=== PATIENT | male | born 1960 | race Caucasian/White ===

== ENCOUNTER 2020-10-05 11:32 | Inpatient (IN) | payer OTHER ==
[~2020-10-05] VITALS: Ht 175.3 cm; Wt 98.0 kg
[~2020-10-05 11:32] MED LIST: CEPHALEXIN500 MG OR; LORTAB5 PO; METOPROLOL SUCC50 MG OR; NEXIUM40 M1 PO; NEXIUM40 MG PO
--- NOTE | 2020-10-05 11:34 | NUR ---
TO ROOM VIA WHEELCHAIR.
--- NOTE | 2020-10-05 12:30 | NUR ---
RESTING ON STRETCHER. CALL NEWELL WITHIN REACH
[2020-10-05 12:38] LABS: HEMATOCRIT 43.3 % (39.0-50.0); HEMOGLOBIN 14.2 g/dl (14.0-18.0); IMMATURE GRANULOCYTES 0.9 % (0.0-5.0); MEAN CELL VOLUME 91.5 fL CALC (80.0-100.0); MEAN CORPUSCULAR HGB CONC 32.8 g/dL CAL (32.0-36.0); NEUT# 3.82 thou/uL (1.82-7.42); RED BLOOD COUNT 4.73 mill/uL (4.70-6.10); RED CELL DISTRI WIDTH 11.9 % (11.5-15.5)
[2020-10-05 12:49] LABS: ALBUMIN 3.9 g/dL (3.2-5.0); ALKALINE PHOSPHATASE 64 u/l (38-126); BILIRUBIN, TOTAL 0.9 mg/dL (0.0-1.4); BUN 11 mg/dL (9-20); BUN/CREATININE RATIO 12 (12-20 (CALC)); CARBON DIOXIDE 27 mmol/l (22-30); CHLORIDE 95 mmol/l (95-108); CREATININE 0.9 mg/dL (0.7-1.3); GFR > 60 ML/MIN (>=60 (CALC)); GFR FOR AFR.AMER. > 60 ML/MIN (>=60 (CALC)); POTASSIUM 4.6 mmol/l (3.5-5.1); TOTAL PROTEIN 7.3 g/dL (6.3-8.2)
[2020-10-05 13:01] LABS: MYOGLOBIN 86 ng/mL (0 - 121)
[2020-10-05 13:02] LABS: ANION GAP 15 (6-22 (CALC)); SGOT/AST 65 u/l (17-59); SODIUM 132 mmol/l (137-146)
--- NOTE | 2020-10-05 13:30 | NUR ---
RESTING ON STRETCHER. DENIES COMPLAINTS
--- NOTE | 2020-10-05 14:30 | NUR ---
RESTING ON STERTCHER. NO ACUTE DISTRESS.
--- NOTE | 2020-10-05 15:30 | NUR ---
TO XRAY WITH SR. STRATEGIC SOURCING MANAGER
--- NOTE | 2020-10-05 16:00 | NUR ---
RETURNED TO ROOM. PULSE OX CHECKED WITH EXERTION AND NO O2. DESAT TO 89% ON ROOM AIR.
[2020-10-05 16:30] LABS: URINE BLOOD DIPSTICK TRACE-INTACT (NEGATIVE); URINE COLOR YELLOW; URINE GLUCOSE - DIPSTICK 250 mg/dL (NEGATIVE); URINE KETONE >=80 mg/dL (NEGATIVE); URINE LEUK ESTERASE NEGATIVE (NEGATIVE); URINE PH 5.5 (4.5-8.0); URINE PROTEIN - DIPSTICK 100 mg/dL (NEG-TRACE); URINE SPECIFIC GRAVITY 1.025; URINE UROBILINOGEN - DIPSTICK 0.2 E.U./dL (0.2)
[2020-10-05 16:32] LABS: URINE BILIRUBIN - DIPSTICK SMALL (NEGATIVE); URINE NITRITE - DIPSTICK NEGATIVE (Negative)
[2020-10-05 16:36] LABS: URINE RBC 0-2 RBC/hpf (0-5); URINE SQUAMOUS EPITHELIAL CELL RARE EPI/hpf (0-FEW)
--- NOTE | 2020-10-05 17:00 | NUR ---
RESTING ON STRETCHER. AWAITING BED ASSIGNMENT
--- NOTE | 2020-10-05 18:20 | NUR ---
REPORT CALLED TO ERICK QUAN ON FLOOR. PT TO BE TRANSPORTED VIA STRETCHER ON TELE
[2020-10-05 18:34] VITALS: BP 179/87
--- NOTE | 2020-10-05 18:34 | NUR ---
TRANSPORTED TO FLOOR WITH RN ON TELE IN STABLE CONDITION
--- NOTE | 2020-10-05 18:34 | NUR ---
[facility] VIA WC ACCOMPANIED BY ER NURSECORETTA;VS WERE TAKEN;PT ORIENTED TO ROOM, BED,CALL LIGHT AND TV;ARM BANDS WERE PLACED ON PT;PT BELONGING INVENTORY WAS TAKEN;INJECTION MOLDING OPERATOR TO FINISH ADMISSION;
--- NOTE | 2020-10-05 19:01 | NUR ---
REPORT FROM AVELINA SUAREZ. ASSUMED PT CARE.
--- NOTE | 2020-10-05 20:39 | NUR ---
PT NOTED RESTING IN BED. ALERT AND ORIENTED X4. ADMISSION ASSESSMENT COMPLETE. EDUCATED PT ON PLAN OF CARE, SAFETY, AND PRONING. PT VERBALIZED UNDERSTANDING. NO APPARENT DISTRESS NOTED. RESPIRATIONS EVEN AND UNLABORED. O2 @ 2L/M VIA NC. IV SITE APPEARS HEALTHY, FLUSHED WELL, IVF INITIATED. THERAPEUTIC RECREATION LEADER IN PLACE. PT DENIES ANY PAIN OR DISCOMFORT. REQUEST SLEEPING PILL, WILL NOTIFY SENIOR SALES MANAGER PHYSICIAN. PT DENIES ANY CURRENT WANTS OR NEEDS. CALL LIGHT WITHIN REACH. WILL CONTINUE TO MONITOR.
[2020-10-05 20:49] VITALS: BP 163/81
--- NOTE | 2020-10-05 21:03 | NUR ---
SEWING TEACHER PHYSICIAN NOTIFIED ABOUT PT BP AND REQUEST FROM SLEEPING PILL.
--- NOTE | 2020-10-05 21:10 | NUR ---
PT CALLED, PASSCODE VERIFIED. UPDATE ON PT STATUS.
[2020-10-05 23:45] VITALS: BP 160/81
--- NOTE | 2020-10-06 01:10 | NUR ---
PT RESTING IN BED WITH EYES CLOSED. NO APPARENT DISTRESS NOTED. RESPIRATIONS EVEN AND UNLABORED. 02 @ 2L/M VIA NC. IVF INFUSING WITHOUT DIFFICULTY. CALL LIGHT WITHIN REACH. WILL CONTINUE TO MONITOR.
[2020-10-06 03:55] VITALS: BP 159/79
--- NOTE | 2020-10-06 04:55 | NUR ---
SR VICE PRESIDENT AT BEDSIDE TO COLLECT AM LABS.
[2020-10-06 05:07] LABS: HEMATOCRIT 37.4 % (39.0-50.0); HEMOGLOBIN 12.4 g/dl (14.0-18.0); MEAN CELL VOLUME 91.2 fL CALC (80.0-100.0); MEAN CORPUSCULAR HGB 30.2 pG CALC (26.0-32.0); MEAN CORPUSCULAR HGB CONC 33.2 g/dL CAL (32.0-36.0); NEUT# 3.54 thou/uL (1.82-7.42); RED BLOOD COUNT 4.1 mill/uL (4.70-6.10); RED CELL DISTRI WIDTH 11.8 % (11.5-15.5)
[2020-10-06 05:27] LABS: ALKALINE PHOSPHATASE 56 u/l (38-126); BILIRUBIN, TOTAL 0.6 mg/dL (0.0-1.4); BUN 16 mg/dL (9-20); BUN/CREATININE RATIO 17 (12-20 (CALC)); CHLORIDE 99 mmol/l (95-108); CREATININE 0.9 mg/dL (0.7-1.3); GFR > 60 ML/MIN (>=60 (CALC)); GFR FOR AFR.AMER. > 60 ML/MIN (>=60 (CALC)); POTASSIUM 4.2 mmol/l (3.5-5.1); SGOT/AST 49 u/l (17-59); SODIUM 131 mmol/l (137-146); TOTAL PROTEIN 5.9 g/dL (6.3-8.2)
[2020-10-06 05:41] LABS: ALBUMIN 3.1 g/dL (3.2-5.0); ANION GAP 17 (6-22 (CALC)); C-REACTIVE PROTEIN 19.7 mg/dL (0-0.9); CARBON DIOXIDE 19 mmol/l (22-30)
--- NOTE | 2020-10-06 08:57 | NUR ---
PATIENT IS SITTING IN THE RECLINER. PATIENT IS ALERT AND ORIENTED X3. PATIENT DENIES PAIN. PATIENT HAS A DRY COUGH. 02 AT 2L VIA NC. O2 READING 89% THEN WENT UP TO 93%. PATIENT STATED WHEN HE MOVES HE FEELS SOB. TELE IN PLACE. LUNGS SOUND DIMINISHED. PATIENT DENIES ANY OTHER NEEDS AT THIS TIME. CALL LIGHT IN REACH.
[2020-10-06 09:16] VITALS: BP 161/77
[2020-10-06 10:54] VITALS: BP 161/86
--- NOTE | 2020-10-06 11:51 | NUR ---
PATIENT IS RESTING IN BED. WHEN PATIENT MOVES OR TALKS HE STARTS TO HAVE A DRY COUGH. PATIIENT REQUESTING COUGH MEDICATION. MEDICATED PATIENT PATIENT WITH ROBITUSSIN. PATIENT DENIES ANY OTHER NEEDS AT THIS TIME. CALL LIGHT IN REACH.
[2020-10-06 14:09] VITALS: BP 152/86
--- NOTE | 2020-10-06 16:21 | NUR ---
PATIENT IS RESTING IN BED AND O2 AT 2L VIA NC. MEDICATED PATIENT WITH ROBITUSSIN PER PATIENT REQUEST FOR HIS COUGH. PATIENT DENIES ANY OTHER NEEDS AT THIS TIME. CALL LIGHT IN REACH.
[2020-10-06 19:00] VITALS: BP 146/80
--- NOTE | 2020-10-06 19:01 | NUR ---
REPORT FROM TAYLER SUAREZ. ASSUMED PT CARE.
--- NOTE | 2020-10-06 19:53 | NUR ---
PT NOTED RESTING IN BED. ALERT AND ORIENTED X4. EDUCATED PT ON PLAN OF CARE, SAFETY, AND PRONING. PT VERBALIZED UNDERSTANDING. NO APPARENT DISTRESS NOTED. RESPIRATIONS EVEN AND UNLABORED. O2 @ 2L/M VIA NC. IV SITE APPEARS HEALTHY, IVF @ KVO. AUTOMOTIVE PARTS SALESPERSON IN PLACE. PT DENIES ANY PAIN OR DISCOMFORT. PT DENIES ANY CURRENT WANTS OR NEEDS. CALL LIGHT WITHIN REACH. WILL CONTINUE TO MONITOR.
[2020-10-06 23:30] VITALS: BP 146/86
--- NOTE | 2020-10-06 23:45 | NUR ---
PT NOTED RESTING IN BED IN PRONE POSITION. CURRENT SAT ON 2L/M VIA NC 95%. NO APPARENT DISTRESS NOTED. IVF KVO. WELDER GUN IN PLACE. NO CURRENT WANTS OR NEEDS. CALL LIGHT WITHIN REACH. WILL CONTINUE TO MONITOR.
[2020-10-07] VITALS (10 sets, daily range): BP systolic 147–165; BP diastolic 74–91
--- NOTE | 2020-10-07 01:29 | NUR ---
NOAHN WILLYITUSSIN ADMINISTERED UPON REQUEST. NO APPARENT DISTRESS NOTED. CALL LIGHT WITHIN REACH. WILL CONTINUE TO MONITOR.
--- NOTE | 2020-10-07 03:04 | NUR ---
PT CALLED MEMBERSHIP COORDINATOR TO ROOM. PT FACE FLUSHED AND DYSPNEIC. HOB ELEVATED. PT HAVING HARD TIME TALKING DUE TO CONTINUOUS DRY NONPRODUCTIVE COUGH. O2 @ 2L/M VIA NC. CURRENT O2 SAT 82%. O2 INCREASED TO 4L/M SAT UP TO 86%, PRN INHALER ADMINISTERED, SAT UP TO 90%. PT STARTED COUGHING AGAIN AND SAT DROPPED BACK DOWN TO 81%- 82%. RT NOTIFIED. O2 INCREASED TO 12L/M VIA HIGHFLOW. NEWS WRITER PHYSICIAN NOTIFIED OF CHANGE IN PT STATUS. ORDERS TO TRANSFER PT TO ICU ON HIGHFLOW MAINTAIN SATS ABOVE 88%, STAT ABGS, VAPOTHERM IF NEEDED.
--- NOTE | 2020-10-07 03:32 | NUR ---
PHONE CALL TO MICK TO NOTIFY OF PT TRANSFER AND STATUS.
--- NOTE | 2020-10-07 03:50 | NUR ---
PATIENT TRANSFERED FROM [facility] FOR RESP DISTRESS. REPORT GIVEN BY STEFFANY. PATIENT ALERT AND ORIENTED. RESP LABORED AND SHALLOW, 15L HI-FLOW ON PATIENT AT ARRIVAL. FALL AND SAFTEY PRECAUTIONS IN PLACE. UPDATED BY MED-SURG NURSE. PATIENT ORIENTED TO ROOM, CALL LIGHT, AND BED. PLAN OF CARE DISCUSSED. PATIENT INFORMED TO CALL WITH ANY QUESTIONS OR CONCERNS.
--- NOTE | 2020-10-07 04:00 | NUR ---
PT TRANSFERED TO ICU. REPORT GIVEN TO WESLY SUAREZ.
--- NOTE | 2020-10-07 04:10 | NUR ---
PATIENT SWITCHED FROM 15L HI-FLOW TO VAPOTHERM 35L FIO2 75% DUE TO LOW SAT.
[2020-10-07 05:30] LABS: HEMATOCRIT 39.6 % (39.0-50.0); HEMOGLOBIN 13.1 g/dl (14.0-18.0); IMMATURE GRANULOCYTES 1.2 % (0.0-5.0); MEAN CELL VOLUME 90.4 fL CALC (80.0-100.0); MEAN CORPUSCULAR HGB 29.9 pG CALC (26.0-32.0); MEAN CORPUSCULAR HGB CONC 33.1 g/dL CAL (32.0-36.0); NEUT# 9.09 thou/uL (1.82-7.42); RED BLOOD COUNT 4.38 mill/uL (4.70-6.10); RED CELL DISTRI WIDTH 11.9 % (11.5-15.5)
[2020-10-07 06:00] LABS: ALBUMIN 3.2 g/dL (3.2-5.0); ALKALINE PHOSPHATASE 66 u/l (38-126); ANION GAP 10 (6-22 (CALC)); BILIRUBIN, TOTAL 0.7 mg/dL (0.0-1.4); BUN 18 mg/dL (9-20); BUN/CREATININE RATIO 21 (12-20 (CALC)); CHLORIDE 100 mmol/l (95-108); CREATININE 0.9 mg/dL (0.7-1.3); GFR > 60 ML/MIN (>=60 (CALC)); GFR FOR AFR.AMER. > 60 ML/MIN (>=60 (CALC)); POTASSIUM 4.2 mmol/l (3.5-5.1); SGOT/AST 65 u/l (17-59); SODIUM 132 mmol/l (137-146); TOTAL PROTEIN 6.2 g/dL (6.3-8.2)
[2020-10-07 06:18] LABS: CARBON DIOXIDE 26 mmol/l (22-30)
--- NOTE | 2020-10-07 07:02 | NUR ---
REPORT RECIEVED FROM NIGHT NURSE. PATIENT CURRENTLY SLEEPING.
--- NOTE | 2020-10-07 07:28 | NUR ---
PATIENT ASSESSED. PATIENT IS A/O, ABLE TO MAKE NEEDS KNOWN. STATES HE IS NOT HAVING ANY SOB, PAIN OR DISCOMFORT AT THIS TIME. HE STATED THAT THE COUGH MEDICINE WORKED FROM EARLIER AND HE IS FEELING BETTER. SAFETY MEASURES IN PLACE. CALL LIGHT IN REACH. WILL CONTINUE TO MONITOR.
--- NOTE | 2020-10-07 09:15 | NUR ---
PATIENT'S CALLED FOR AN UPDATE. SPOKE TO HER AND UPDATED HER ON HER 'S STATUS.
--- NOTE | 2020-10-07 10:00 | NUR ---
SPOKE TO PER DOCTOR JENNIE FUNES. ASKED HER FOR SOME SUGAR FREE COUGH DROPS FOR THE PATIENT. NEERAJ THE STATED THAT SHE WILL GO TO THE STORE AND BRING THEM TO THE ER LATER TODAY.
--- NOTE | 2020-10-07 10:38 | NUR ---
PATIENT'S SON IN LAW, DONY, CALLED, HE GAVE ME THE CODE. UPDATED HIM BRIEFLY. DONY STATED THAT HE WILL CALL BACK TOMORROW MORNING TO SPEAK TO CASE MANAGMENT ABOUT CODE STATUS OF THE PATIENT.
--- NOTE | 2020-10-07 11:10 | NUR ---
SPOKE TO THE PATIENT ABOUT HIS FAMILY CALLING AND THEIR CONCERNS. ASKED HIM IF HE KNEW WHAT IT MEANT TO BE A DNR OR FULL CODE. HE STATED "I KIND OF KNOW BUT NOT FULLY". EDUCATION WAS PROVIDED. PATIENT CLEARLY STATED "THAT IF I I DON'T NEED TO BRING ME BACK." TOLD HIM CASE MANAGMENT IS NOT HERE TODAY BUT I WILL MENTION IT TO THE UPCOMING NURSE OF YOUR REQUEST OF CHANGING YOUR CODE STATUS. HE STATED THAT HE UNDERSTANDS.
--- NOTE | 2020-10-07 12:00 | NUR ---
PATIENT IS SITTING UP EATING HIS LUNCH. GAVE HIM THE COUGH DROPS HIS KINDLY DROPPED OFF FOR HIM. HE STILL CONTINUES TO HAVE FREQUENT COUGHING. A FEW MINTUES PRIOR TO COMING IN THE ROOM PATIENT STATED THAT HE WAS COUGHING SO MUCH THAT HE FELT LIKE HE WAS "GOING TO PASS OUT". WILL CONTINUE TO MONITOR.
--- NOTE | 2020-10-07 14:00 | NUR ---
PATIENT IS SITTING UP IN BED WATCHING TV. COUGHING HAS DECREASED. WILL CONTINUE TO MONITOR.
--- NOTE | 2020-10-07 14:26 | NUR ---
PATIENT WAS OFFERED TO BE WASHED UP IN BED AND BED SHEETS CHANGED. PATIENT DECLINED STATED "AT THIS POINT IT'S NOT EVEN WORTH IT". OFFERED AGAIN AND HE SAID NO. INFORMED HIM THAT IF HE CHNAGED HIS MIND, LET ME KNOW. HE NODDED HIS HEAD.
--- NOTE | 2020-10-07 15:00 | NUR ---
SPOKE TO OVER THE PHONE, GAVE HER AN UPDATE ON HER .
--- NOTE | 2020-10-07 16:00 | NUR ---
LESS COUGHING NOTED. PATIENT STATED THAT HE WILL LIMIT WHAT HE SAIDS BECUASE TALKING SEEMS TO TRIGGER HIS COUGH MORE. PATIENT DOESN'T WANT HIS COUGH MEDS, STATED "THEY DON'T HELP NOTHING BESIDES MAKE ME COUGH MORE".
--- NOTE | 2020-10-07 18:39 | NUR ---
PATIENT REFUSED TO EAT HIS DINNER. STATED THAT "EATING FOOD MAKES HIM COUGH". GAVE HIM APPLESAUCE, TOLERATED WELL. PATIENT IS CURRENTLY LAYING ON HIS STOMATCH STATED THAT HE FEELS BETTER LIKE THAT, LESS COUGHING. SAFETY MEASURES IN PLACE. CALL LIGHT IN REACH. WILL CONTINUE TO MONITOR.
--- NOTE | 2020-10-07 20:03 | NUR ---
REPORT GIVEN BY GIDEON. PATIENT RESTING IN BED PRONE. RESP EVEN AND UNLABORED WITH VAPOTHERM IN PLACE. NO S/S OF DISTRESS NOTED. FALL AND SAFTEY PRECAUTION IN PLACE. IV INFUSING KVO FLUIDS. PLAN OF CARE DISCUSSED. PATIENT INFORMED TO CALL WITH ANY QUESTIONS OR CONCERNS. COUGH PRESENT, NON-PRODUCTIVE.
--- NOTE | 2020-10-07 20:30 | NUR ---
bedtime snack offered, declined due to the coughing the patient is experiencing
--- NOTE | 2020-10-07 20:30 | NUR ---
updated on patient condition
--- NOTE | 2020-10-07 22:07 | NUR ---
rt at bedside adjusting FIO2. ON VAPOTHERM
[2020-10-08] VITALS (18 sets, daily range): BP systolic 119–160; BP diastolic 78–92
--- NOTE | 2020-10-08 00:27 | NUR ---
PATIENT RESTING WITH EYES CLOSED. RESP EVEN AND UNLABORED. NO S/S OF DISTRESS NOTED. FALL AND SAFTEY PRECAUTIONS IN PLACE
--- NOTE | 2020-10-08 01:48 | NUR ---
RT CALLED DUE TO LOW O2 SAT. VAPOTHERM SETTINGS CHANGED TO 35L FIO2 75%. PATIENT EDUCATED ON DEEP BREATHING BY RT, PATIENT REFUSES DUE TO THE FACT IT MAKES HIM COUGH. PATIENT HAS HAD A COUGH MOST OF THE NIGHT. MEDICATIONS GIVEN PER MD ORDERS.
--- NOTE | 2020-10-08 04:06 | NUR ---
PATIENT WOKE UP COUGHING, MEDICATED PER MD ORDERS
--- NOTE | 2020-10-08 04:37 | NUR ---
O2 SAT STAYED IN THE LOW 81-84%, CALLED RT
--- NOTE | 2020-10-08 04:43 | NUR ---
VAPOTHERM SETTING CHANGED TO 35L FOI2 90%
[2020-10-08 05:29] LABS: HEMOGLOBIN 13.3 g/dl (14.0-18.0); IMMATURE GRANULOCYTES 1.5 % (0.0-5.0); MEAN CELL VOLUME 91.1 fL CALC (80.0-100.0); MEAN CORPUSCULAR HGB 30.3 pG CALC (26.0-32.0); MEAN CORPUSCULAR HGB CONC 33.3 g/dL CAL (32.0-36.0); NEUT# 8.02 thou/uL (1.82-7.42); RED BLOOD COUNT 4.39 mill/uL (4.70-6.10); RED CELL DISTRI WIDTH 12.1 % (11.5-15.5)
[2020-10-08 05:54] LABS: ALBUMIN 3.2 g/dL (3.2-5.0); ALKALINE PHOSPHATASE 64 u/l (38-126); ANION GAP 10 (6-22 (CALC)); BILIRUBIN, TOTAL 0.7 mg/dL (0.0-1.4); BUN 16 mg/dL (9-20); BUN/CREATININE RATIO 19 (12-20 (CALC)); C-REACTIVE PROTEIN 7.4 mg/dL (0-0.9); CARBON DIOXIDE 27 mmol/l (22-30); CHLORIDE 102 mmol/l (95-108); CREATININE 0.8 mg/dL (0.7-1.3); GFR > 60 ML/MIN (>=60 (CALC)); GFR FOR AFR.AMER. > 60 ML/MIN (>=60 (CALC)); POTASSIUM 4.1 mmol/l (3.5-5.1); SGOT/AST 52 u/l (17-59); SODIUM 134 mmol/l (137-146); TOTAL PROTEIN 6.1 g/dL (6.3-8.2)
--- NOTE | 2020-10-08 06:30 | NUR ---
UPDATED SON IN LAW DONY THIS MORNING
--- NOTE | 2020-10-08 06:45 | NUR ---
REPORT RECEIVED FROM PADILLA SUAREZ. CARE ASSUMED.
--- NOTE | 2020-10-08 07:30 | NUR ---
PT RESTING IN BED AWAKE. PT IS ALERT AND ORIENTED X3. SHIFT ASSESSMENT COMPLETED AT THIS TIME. IV PATENT X1. PT ASSISTED UP TO RECLINER AT BEDSIDE. PT SET UP FOR AM MEAL. DISCUSSED IMPORTANCE OF GETTING UP DAILY AND DEEP BREATHING. PT VERBALIZED UNDERSTANDING. CALL LIGHT IN REACH. WILL CONTINUE TO MONITOR.
--- NOTE | 2020-10-08 09:00 | NUR ---
DR JACKSON INTO SEE PATIENT AND DISCUSS PLAN OF CARE
--- NOTE | 2020-10-08 09:55 | NUR ---
PT SITTING UPIN RECLINER AT BEDSIDE. RESP ARE EVEN AND UNLABORED. NO DISTRESS NOTED. CALL LIGHT IN REACH. WILL CONTINUE TO MONITOR. -
--- NOTE | 2020-10-08 11:50 | NUR ---
VAPOTHERM TITRATED TO 30L 80%. O2 SATS >90%
--- NOTE | 2020-10-08 14:00 | NUR ---
PT SITTING UP IN RECLINER RESTING WITH EYES CLOSED. RESP ARE EVEN AND UNLABORED. NO DISTRESS NOTED. CALL LIGHT IN REACH. WILL CONTINUE TO MONTIOR.
--- NOTE | 2020-10-08 15:34 | NUR ---
PT O2 SATS 99% PT TITRATED TO 70% AND 25L. PT STATES " DON'T TITRATE IT TO MUCH I WILL SUFFOCATE" PROVIDED PATIENT WITH REASSURANCE THAT HIS O2 SATS ARE DOING GOOD. ASSISTED PT WITH SETTING UP A VIDEO CALL WITH SPOUSE. O2 SATS REMAINS >95%. CALL LIGHT IN REACH. WILL CONTINUE TO MONITOR.
--- NOTE | 2020-10-08 17:30 | NUR ---
PT SET UP FOR PM MEAL. PT STATES THAT HE IS NAUSEATED AT THIS TIME. OFFERED TO HOLD PM MEAL OR TRY TO ORDER SOME SOUP PT WANTS TO KEEP TRAY AND EAT. ASKED IF PT WANTED ZOFRAN PT STATES HE ASKED FOR SOME PREVIOUSLY. ORDER FAXED TO . PT NOTED TO HAVE A HEALTH CARE LEGAL ASSISTANT COUGH. EDUCATED ON COUGH ETIQUETTE. OFFERRED VENTOLIN INHALER. MULTIPLE COUGH DROPS AT BDSIDE FROM HOME. PT REFUSED ALL. O2 SATS REMAINS > 88%.
--- NOTE | 2020-10-08 18:20 | NUR ---
PT SEATED UP IN RECLINER. O2 SATS 95%. CALL LIGHT IN REACH. WILL CONTINUE TO MONITOR.
--- NOTE | 2020-10-08 20:30 | NUR ---
REPORT RECIVED FROM ERICK MOSQUERA. PT RESTING IN BED AT THIS TIME, NO COMPLAINTS VOICED. PT WAS NOTED TO HAVE HIGH LEVELS OF ANXIETY EARLIER IN SHIFT, CUSSING AT NURSE AND MESSING WITH NASAL CANNULA. DRY HACKING COUGH NOTED. O2 SATS WNL. B/P SLIGHTLY ELEVATED. PT IS SCHEDULED FOR NORVASC AT NINE PM. WILL MONITOR B/P THROUGHOUT THE SHIFT. PT DENIES PAIN, WILL GIVE XANAX WITH BEDTIME PILLS TO DECREASE ANXIETY LEVELS.
--- NOTE | 2020-10-08 22:00 | NUR ---
PT RESTING ON HIS BACK WITH THE HEAD OF HIS BED ELEVATED. PT WAS LYING PRONE EARLIER AND ROLLED HIMSELF BACK ONTO HIS BACK. INSTRUCTED PT THAT LYING PRONE MAKES IT EASIER TO BREATHE WHEN POSITIVE WITH COVID. PT INDICATED UNDERSTANDING TO INSTRUCTION GIVEN. PT WAS ADMINSTERED XANAX AND SLEEPING PILL PER PT REQUEST. WILL MONITOR
[2020-10-09] VITALS (14 sets, daily range): BP systolic 118–157; BP diastolic 67–90
--- NOTE | 2020-10-09 00:10 | NUR ---
PT RESTING COMFORTABLY IN BED WITH EYES CLOSED. BREATHING EVEN AND UNLABORED. NO COMPLAINTS VOICED AT THIS TIME. DENIES PAIN. WILL MONITOR
--- NOTE | 2020-10-09 02:08 | NUR ---
PT NOTED SITTING UP IN CHAIR WHEN ROUNDS COMPLETED. PT WAS HAVING A DRY HACKY COUGHING FIT AT TIME OF ASSESSMENT. ADMINSTERED ROBITUSSIN PRN. ASSISTED PT BACK TO A PRONING POSITION TO INCREASE OXYGENATION. PT TOLERATED REPOSITIONING WELL. SAFETY ROUNDS IN PLACE, BED IN LOWEST POSITION, CALL LIGHT WITHIN REACH. WILL MONITOR
--- NOTE | 2020-10-09 04:18 | NUR ---
LAB AT BEDSIDE DRAWING CHEM 7 THIS AM. PRIOR TO LAB ARRIVAL PT WAS RESTING QUIETLY AND HAD NOT EXPERIENCED AT COUGHING SINCE ADMINSTRATION OF ROBITUSSION. UPON LAB ARRIVAL, PT BEGAN COUGHING HARD AND HR WENT UP WITH SOME PVC'S. O2 SATURATION WITH COUGHING REMAINED WNL. PT WAS ABLE TO HAVE BLOOD DRAWN BY LAB. PT IS NOW BACK TO PRONING IN BED, VS HAVE RESTABILIZED. NO S/S OF DISTRESS AT THIS TIME. WILL CONTINUE TO MONITOR
--- NOTE | 2020-10-09 06:05 | NUR ---
PT LYING IN BED IN THE PRONE POSITION. PT KEEPS PULLING OUT SPO2 SENSOR WHEN HE ROLLS OVER IN BED, JUST RECONNECTED IT PRIOR TO 0600 VS READINGS. PT REQUESTED ROBITUSSION, ONCE NURSE WAS OFFERING TO PT HE REFUSED. WILL ADVISE NEXT SHIFT OF REFUSAL AFTER PULLED. PT COMES AND GOES INTO COUGHING FITS, NORMALLY WHEN WOKEN UP, WHEN SPEAKING, AND WHEN MOVING. WILL CONTIUE TO MONITOR FOR REMAINDER OF SHIFT. SAFETY PRECAUTIONS IN PLACE.
[2020-10-09 06:30] LABS: ALBUMIN 3.1 g/dL (3.2-5.0); ALKALINE PHOSPHATASE 69 u/l (38-126); ANION GAP 13 (6-22 (CALC)); BILIRUBIN, TOTAL 0.7 mg/dL (0.0-1.4); BUN 20 mg/dL (9-20); BUN/CREATININE RATIO 21 (12-20 (CALC)); CARBON DIOXIDE 26 mmol/l (22-30); CHLORIDE 102 mmol/l (95-108); CREATININE 0.9 mg/dL (0.7-1.3); GFR > 60 ML/MIN (>=60 (CALC)); GFR FOR AFR.AMER. > 60 ML/MIN (>=60 (CALC)); POTASSIUM 4.8 mmol/l (3.5-5.1); SGOT/AST 47 u/l (17-59); SODIUM 137 mmol/l (137-146)
--- NOTE | 2020-10-09 06:45 | NUR ---
REPORT RECEIVED FROM JOSTIN FAY. CARE ASSUMED.
--- NOTE | 2020-10-09 07:15 | NUR ---
PT RESTING IN BED AWAKE. PT IS ALERT AND ORIENTED X3. PT ASSISTED UP TO RECLINER. PT DID HAVE SOME SHORTNESS OF BREATH ON EXERTION O2 SATS TO 86%. PT ENCOURAGE TO TAKE SLOW DEEP BREATHS PT CONTINUES TO SHALLOW BREATH AND CONVERSE ON CELL PHONE. SHIFT ASSESSMENT COMPLETED AT THIS TIME. IV PATENT X1. CALL LIGHT IN REACH. WILL CONTINUE TO MONITOR.
--- NOTE | 2020-10-09 07:45 | NUR ---
PT SET UP FOR AM MEAL AT THIS TIME.
--- NOTE | 2020-10-09 08:30 | NUR ---
DR JACKSON AT BEDSIDE TO SEE PATIENT AND DISCUSS PLAN OF CARE
--- NOTE | 2020-10-09 09:00 | NUR ---
PT ASSISTED BACK TO BED TO REST. PT LAYING PRONE. PT TOLERATING WELL. CALL LIGHT IN REACH. WILL CONTINUE TO MONITOR.
--- NOTE | 2020-10-09 11:00 | NUR ---
PT COAT CHECKER LIGHT TO STATE THAT HE HAD A WE COUGH. CLEAR SPUTUM NOTED. PT SEATED UP ON SIDE OF BED. O2 SATS 94%. FIO2 DECREASED TO 65%. PT TOLERATED WELL. SPOUSE [place] CALLED FOR UPDATE. UPDATE PROVIDED. WILL CONTINUE TO MONITOR.
--- NOTE | 2020-10-09 11:29 | NUR ---
VAPOTHERM DECREASED TO FIO2 65% 22LITERS. PT TOLERATING WELL. PT REPORTS USING INCENTIVE SPIROMETER AT BEDSIDE.,
--- NOTE | 2020-10-09 11:50 | NUR ---
VAPOTHERM TITRATED TO FIO2 60% 20 LITERS
--- NOTE | 2020-10-09 13:05 | NUR ---
VAPOTHERM TITRATED TO 50% FIO2 AND 15 LITERS
--- NOTE | 2020-10-09 14:00 | NUR ---
PT ASSISTED UP TO RECLINER AT BEDSIDE. PT AMBULATED AROUND BED. O2 SATS DECREASED. INCREASED VAPOTHERM TO HELP PATIENT RECOVER.
--- NOTE | 2020-10-09 16:00 | NUR ---
PT SITTING UP IN RECLINER. PT WITH COMPLAINTS OF WEAKNESS AND FEELING NOT WELL. PT DECIDES TO CONINUE TO REST IN RECLINER. VSS ON MONITOR. CALL LIGHT IN REACH. WILL CONTINUE TO MONITOR.
--- NOTE | 2020-10-09 18:10 | NUR ---
PT SITTING UP IN RECLINER EATING EVENING MEAL. VSS ON MONITOR. CALL LIGHT IN REACH WILL CONTINUE TO MONITOR.
--- NOTE | 2020-10-09 20:00 | NUR ---
lying in prone position. denies resp diff. o2 cont 70% 22 liters per vapotherm. classroom monitor shows sinus rhythm hr 66. #20 rac saline lock. po fluids taken well. voids per urinal. fall & air/contact precautions cont.
--- NOTE | 2020-10-09 21:00 | NUR ---
sitting on side of bed coughing. instructed pt about cough etiquette as he is coughing in this writers face. pt verbalized understanding. sonata 5mg, xanax 0.5mg & robitussin ac 10cc given po per request for sleep, anxiety & cough. instructed pt again about prone position. pt verbalized understanding & complied.
--- NOTE | 2020-10-09 22:00 | NUR ---
lying quietly in prone position. no distress.
[2020-10-10] VITALS (11 sets, daily range): BP systolic 122–163; BP diastolic 66–83
--- NOTE | 2020-10-10 00:01 | NUR ---
resting quietly. no distress. desk monitor shows sinus rhythm hr 64
--- NOTE | 2020-10-10 02:00 | NUR ---
resting quietly. resps even & unlabored. no apparent distress. o2 cont.
--- NOTE | 2020-10-10 04:10 | NUR ---
lab here. blood drawn.
[2020-10-10 05:24] LABS: HEMOGLOBIN 13.7 g/dl (14.0-18.0); IMMATURE GRANULOCYTES 2.4 % (0.0-5.0); MEAN CELL VOLUME 92.5 fL CALC (80.0-100.0); MEAN CORPUSCULAR HGB 30.2 pG CALC (26.0-32.0); MEAN CORPUSCULAR HGB CONC 32.6 g/dL CAL (32.0-36.0); NEUT# 8.06 thou/uL (1.82-7.42); RED BLOOD COUNT 4.54 mill/uL (4.70-6.10); RED CELL DISTRI WIDTH 11.9 % (11.5-15.5)
[2020-10-10 05:54] LABS: ANION GAP 12 (6-22 (CALC)); BUN 19 mg/dL (9-20); BUN/CREATININE RATIO 23 (12-20 (CALC)); C-REACTIVE PROTEIN 4.2 mg/dL (0-0.9); CARBON DIOXIDE 29 mmol/l (22-30); CHLORIDE 100 mmol/l (95-108); CREATININE 0.8 mg/dL (0.7-1.3); GFR > 60 ML/MIN (>=60 (CALC)); GFR FOR AFR.AMER. > 60 ML/MIN (>=60 (CALC)); POTASSIUM 4.7 mmol/l (3.5-5.1); SODIUM 135 mmol/l (137-146)
--- NOTE | 2020-10-10 06:00 | NUR ---
no acute change in condition this shift. supervisor sterile processing shows sinus rhythm hr 71.
--- NOTE | 2020-10-10 08:00 | NUR ---
ASSESSMENT COMPLETE. AXOX3 O2 IN PLACE . NO RESP DISTRESS NOTED AT THIS TIME. NOTED CARDIAC NURSE PRACTITIONER COUGH . DENIES PAIN. REQUEST "SOME THING TO MAKE ME GO TO THE BATHROOM" PROVIDER NOTIFIED. REPOSITIONED FOR COMOFRT, SIDE RAILS UP CALL LIGHT IN REACH, ALL SAFTY MEASURES IN PLACE . WILL CONTINUE TO MONITOR.
--- NOTE | 2020-10-10 10:00 | NUR ---
OUT OF THE BED TO THE BEDSIDE CHAIR, PT STATES " I AM FEELING BETTER " [address] NO SOB NOTED . VS STABLE. HYGINE CARE GIVEN. CALL LIGHT N REACH. RESTING THE BEDSIDE CHAIR AT THIS TIME. DENIES PAIN.
--- NOTE | 2020-10-10 12:12 | NUR ---
PT SITTING UP ON THE SIDE OF THE BED EATING LUNCH. NO DISTRESS NOTED AT THIS TIME. WILL CONTINUE TO MONIOTR THE PATIENT.
--- NOTE | 2020-10-10 17:10 | NUR ---
PT BS 410 REPORTED TO THE PROVIDER. NO NEW ORDERS AT THIS TIME.
--- NOTE | 2020-10-10 17:19 | NUR ---
PT EDUCATED ON BS RESULTS. ENCOURAGED TO USE HIS ISSU. NO RESP DISTRESS NOTED. HE DENIES PAIN. WILL CONTINUE TO MONIOTR THE PATIENT.
--- NOTE | 2020-10-10 18:20 | NUR ---
PT GIVEN MED FOR CONSTIPATION TODAY. NO RESULTS AT THIS TIME, WILL PASS ON TO THE ON COMING SHIFT.
--- NOTE | 2020-10-10 20:03 | NUR ---
REPORT GIVEN BY NIVIA. PATIENT SITTING IN RECLINER AT THE BEDSIDE. RESP EVEN AND UNLABORED. NO S/S OF DISTRESS NOTED. FALL AND SAFTEY PRECAUTIONS IN PLACE. VAPOTHERM ON PATIENT. IV INFUSING FLUIDS. PLAN OF CARE DISCUSSED. PATIENT INFORMED TO CALL WITH ANY QUESTIONS OR CONCERNS.
--- NOTE | 2020-10-10 20:24 | NUR ---
PATIENT GIVEN BEDTIME SNACK. REQUESTING TYLENOL FOR GENERAL PAIN, XANAX FOR ANX,SLEEPING PILL GIVEN FOR SLEEP AND COUGH SYRUP BEFORE BEDTIME. PM MEDICATION GIVEN PER MD ORDERS.
--- NOTE | 2020-10-10 20:47 | NUR ---
NEW IV STARTED 20LFA, REMOVED 20RAC DUE TO BEING OUT DATED.
--- NOTE | 2020-10-10 22:00 | NUR ---
PATIENT RESTING PRONE. RESP EVEN AND UNLABORED. NO S/S OF DISTRESS NOTED. FALL AND SAFTEY PRECAUTIONS IN PLACE.
[2020-10-11] VITALS (12 sets, daily range): BP systolic 130–167; BP diastolic 71–88
--- NOTE | 2020-10-11 00:32 | NUR ---
PATIENT RESTING WITH EYES CLOSED IN THE PRONE POSITION. RESP EVEN AND UNLABORED, VPOTHERM IN PLACE 22L FOI2 70%. NO S/S OF DISTRESS NOTED.
--- NOTE | 2020-10-11 02:00 | NUR ---
PATIENT RESTING WITH EYES CLOSED. RESP EVEN AND UNLABORED. NO S/S OF DISTRESS NOTED
--- NOTE | 2020-10-11 04:15 | NUR ---
PATIENT RESTING WITH EYES CLOSED. RESP EVEN AND UNLABORED. NO S/S OF DISTRESS NOTED.
[2020-10-11 05:45] LABS: HEMATOCRIT 39.4 % (39.0-50.0); HEMOGLOBIN 13.3 g/dl (14.0-18.0); IMMATURE GRANULOCYTES 1.7 % (0.0-5.0); MEAN CELL VOLUME 90.4 fL CALC (80.0-100.0); MEAN CORPUSCULAR HGB 30.5 pG CALC (26.0-32.0); MEAN CORPUSCULAR HGB CONC 33.8 g/dL CAL (32.0-36.0); NEUT# 8.62 thou/uL (1.82-7.42); RED BLOOD COUNT 4.36 mill/uL (4.70-6.10); RED CELL DISTRI WIDTH 11.7 % (11.5-15.5)
[2020-10-11 05:55] LABS: ALBUMIN 2.9 g/dL (3.2-5.0); ALKALINE PHOSPHATASE 55 u/l (38-126); ANION GAP 9 (6-22 (CALC)); BILIRUBIN, TOTAL 0.8 mg/dL (0.0-1.4); BUN 17 mg/dL (9-20); BUN/CREATININE RATIO 23 (12-20 (CALC)); CARBON DIOXIDE 29 mmol/l (22-30); CHLORIDE 98 mmol/l (95-108); CREATININE 0.8 mg/dL (0.7-1.3); GFR > 60 ML/MIN (>=60 (CALC)); GFR FOR AFR.AMER. > 60 ML/MIN (>=60 (CALC)); POTASSIUM 4.5 mmol/l (3.5-5.1); SGOT/AST 32 u/l (17-59); SODIUM 132 mmol/l (137-146); TOTAL PROTEIN 5.7 g/dL (6.3-8.2)
--- NOTE | 2020-10-11 06:42 | NUR ---
MEDICAL DOCTOR MD/MEDICAL DIRECTOR DECREASED TEMP ON VAPOTHERM FROM 36C TO 3C. PT TO LWELL AT THIS TIME. NAD. VSS. MEDICAL DOCTOR MD/MEDICAL DIRECTOR TO MONITOR. PT STATES NO DISTRSS.
--- NOTE | 2020-10-11 08:00 | NUR ---
ASSESSMENT DONE. AXOX3, STATES HE IS FEELING THE SAME YESTERDAY. NOTED ANXIETY, MED PER ORDER. ENCOURAGED TO USE THE ISSU, RETURN DEMONSTRATION OF CORRECT USE. OFFERED TO PROVIDE HYGINE CARE AND NEW LININS, PT DECLINED. NO RESP DISTRESS OR SOB NOTED AT THIS TIME. REPOSITIONED FOR COMOFRT, SIDE RAILS UP CALL LIGHT IN REACH BED LOCKED IN LOW POSITION, ALL SAFTY MEASURES IN PLACE. WILL CONTINUE OT MONIOTR THE PATIENT.
--- NOTE | 2020-10-11 09:17 | NUR ---
titrated paramteres as per pt spo2. increased fio2 from .7 to .8 and decreased lpm from 22lpm to 20 lpm. kenisha well at this time. pt prone, asleep. wrecking crane engine operator to monitor.
--- NOTE | 2020-10-11 09:32 | NUR ---
PT RESTING COMOFRTABLE IN THE BED AT THIS TIME. NO ANXITY NOTED. WILL CONTINUE TO MONITOR.
--- NOTE | 2020-10-11 11:07 | NUR ---
pt in chair at this time. nad. vss. no weaning of vapotherm at this time. seafood fisherman to monitor. show card letterer in room c pt at this time as well.
--- NOTE | 2020-10-11 12:00 | NUR ---
OUT OF THE BED TO THE BEDSIDE CHAIR. [address] NO RESP DISTRESS NOTED. PARTIAL HYGINE CARE GIVEN. CALL LIGHT IN REACH. DENIES PAIN AT THIS TIME. WILL CONTINUE TO MONITOR THE PATIENT.
--- NOTE | 2020-10-11 13:47 | NUR ---
PT HAD A LARGE BROWN STOOL.
--- NOTE | 2020-10-11 15:10 | NUR ---
titrated vapotherm settings as per pt spo2. pt in chair at bedside. no acute distress noted at this time. pt states he feels better after "having a poop". pt kenisha vapotherm titration well at this point. ice seller to monitor.
--- NOTE | 2020-10-11 16:56 | NUR ---
PT STATES "I WENT MOVED MY BOWELS AGAIN, I FEEL SO MUCH BETTER" . PT RESTING IN THE BEDSIDE CHAIR CALL LIGHT IN REACH. NO DISTRESS NOTED AT THIS TIME. wILL CONTINUE TO MONIOTR THE PATIENT.
--- NOTE | 2020-10-11 17:59 | NUR ---
PT STILL UP IN THE BEDSIDE CHAIR. CALL LIGHT IN REACH, NO DISTRESS NOTED.
--- NOTE | 2020-10-11 19:59 | NUR ---
PATIENT REQUESTING TYLENOL, XANAX, COUGH SYRUP, AND SONATA TONIGHT. HE IS CURRENTLY REQUESTING PM MEDICATIONS AT THIS TIME. BEDTIME SNACK OFFERED. FALL AND SAFTEY PRECAUTION IN PLACE
--- NOTE | 2020-10-11 20:00 | NUR ---
REPORT GIVEN BY NIVIA. PATIENT SITTING UP AT THE BEDSIDE. RESP EVEN AND UNLABORED, VAPOTHERM 27L 70% FIO2. NO S/S OF DISTRESS NOTED. FALL AND SAFTEY PRECAUTIONS IN PLACE. PLAN OF CARE DISCUSSED. PATIENT INFROMED TO CALL WITH ANY QUESTIONS OR CONCERNS.
--- NOTE | 2020-10-11 21:42 | NUR ---
PATIENT RESTING WITH EYES CLOSED. RESP EVEN AND UNLABORED. NO S/S OF DSITRESS NOTED
[2020-10-12] VITALS (12 sets, daily range): BP systolic 98–150; BP diastolic 62–84
--- NOTE | 2020-10-12 00:20 | NUR ---
PATIENT RESTING WITH EYES CLOSED. RESP EVEN AND UNLABORED. NO S/S OF DISTRESS NOTED
--- NOTE | 2020-10-12 02:11 | NUR ---
PATIENT RESTING IN BED. RESP EVEN AND UNLABORED. NO S/S OF DISTRESS NOTED. FALL AND SATEY PRECAUTIONS IN PLACE.
[2020-10-12 05:05] LABS: HEMATOCRIT 39.3 % (39.0-50.0); HEMOGLOBIN 13.4 g/dl (14.0-18.0); IMMATURE GRANULOCYTES 2.5 % (0.0-5.0); MEAN CELL VOLUME 89.9 fL CALC (80.0-100.0); MEAN CORPUSCULAR HGB 30.7 pG CALC (26.0-32.0); MEAN CORPUSCULAR HGB CONC 34.1 g/dL CAL (32.0-36.0); NEUT# 7.84 thou/uL (1.82-7.42); RED BLOOD COUNT 4.37 mill/uL (4.70-6.10); RED CELL DISTRI WIDTH 11.7 % (11.5-15.5)
[2020-10-12 05:11] LABS: ANION GAP 9 (6-22 (CALC)); BUN 17 mg/dL (9-20); BUN/CREATININE RATIO 22 (12-20 (CALC)); C-REACTIVE PROTEIN 5.7 mg/dL (0-0.9); CARBON DIOXIDE 31 mmol/l (22-30); CHLORIDE 96 mmol/l (95-108); CREATININE 0.8 mg/dL (0.7-1.3); GFR > 60 ML/MIN (>=60 (CALC)); GFR FOR AFR.AMER. > 60 ML/MIN (>=60 (CALC)); POTASSIUM 4.3 mmol/l (3.5-5.1); SODIUM 132 mmol/l (137-146)
--- NOTE | 2020-10-12 06:36 | NUR ---
PT RESTING COMFORTABLY AT THIS TIME. NOACUTE DISTRESS NOTED. VITALS WNL. PT MAINTAINED SPO2 =90 ON CURRENT VAPOTHERM PARAMETERS. CUSHION SEWER TO MONITOR.
--- NOTE | 2020-10-12 07:15 | NUR ---
pt awake sitting on the side of the bed; no apparent distress noted; pt offers no complaints; assessment completed at this time; pt alert and oriented; interm confusion noted; pt denies pain/ discomfort; no n/v noted per mortgage or loan underwriter; resp even and unlabored; lungs clear/ diminished bases; skin color wnl; o2 per nc at 5: moist loose cough noted; pt noted with self suctioning setup at bedside; hr irreg; wk pedal pulses; 2+ edema noted to ble; afib 110s on monitor; abd soft/ distended with bs present; no bm noted per mortgage or loan underwriter; pt assisted to standing position per this mortgage or loan underwriter to urinate; pt urinated on floor/ missed urinal; pericare/ gown changed per mortgage or loan underwriter; no accidently dislodged IV approx [id number] this am per geothermal powerplant mechanic helper; edema noted to rfa; arm cleansed of old blood; mortgage or loan underwriter unable to establish iv access at this time; plan of care/ am meds explained; pt requires much assistance/ guidance; call light within reach; will continue to monitor
--- NOTE | 2020-10-12 08:00 | NUR ---
REPORT RECEIVED BEDSIDE HANDOFF. PATIENT IN BEDSIDE CHAIR STILL SHORT OF BREATH WITH ACTIVITY. PATIENT ENCOURAGED TO ASK QUESTIONS. SAFETY PERCAUTIONS IN PLACE. PATIENT ON VAPOTHERM 27L 70%. WILL CONTINUE TO MONITOR.
--- NOTE | 2020-10-12 10:00 | NUR ---
PATIENT IS SITTING IN CHAIR WITH NO NEW CONCERNS. PATIENT ATE 50% OF HIS BREAKFAST. ROUNDED WITH DR JACKSON IN PATIENTS ROOM. PATIENT STILL ON VAPOTHERM 27L 70%. WILL CONTINUE TO MONITOR.
--- NOTE | 2020-10-12 11:10 | NUR ---
PT C NAD. VSS. NO CHANGES IN [facility] PARAMETERS AT THIS TIME. MARINE EQUIPMENT ENGINEER TO MONITOR.
--- NOTE | 2020-10-12 12:00 | NUR ---
PATIENT IS SITTING IN ROOM CHAIR. BLOOD GLUCOSE HIGH 293 INSULINE PROVIDED BEFORE LUNCH TRY. PATIENT ATE 50% OF MEAL. PATIENT STATED THAT HIS PAIN LEVEL IS 0 AT THE MOMENT. FALL PERCAUTIONS IN PLACE. WILL CONTINUE TO MONITOR.
--- NOTE | 2020-10-12 14:00 | NUR ---
PATIENT IS IN BED SLEEPING PRONE POSITION VAPOTHERM IN PLACE. IV ABX STARTED AND REMDESIVIR RIGHT AFTER. FALL PERCAUTIONS IN PLACE. WILL CONTINUE TO MONITOR.
--- NOTE | 2020-10-12 14:57 | NUR ---
PT IN NAD. VSS. USING BEDSIDE URINAL. DEFECT CUTTER TO MONITOR. NO CHANGES TO VAPOTHERM PARAMETERS AT THIS TIME.
--- NOTE | 2020-10-12 16:00 | NUR ---
PATIENT WATCHING TV IN CHAIR WITH NO NEW CONCERNS. WATER REFILLED AND IV ABX GIVEN. FALL PERCAUTIONS IN PLACE. PATIENT EDUCATED ON SAFETY. WILL CONTINUE TO MONITOR.
--- NOTE | 2020-10-12 18:00 | NUR ---
PATIENT PROVIDED DINNER WITH INSULINE COVERAGE. PATIENT HAS NO NEW CONCERNS. PATIENT SETTING IN CHAIR WATCHING TV. PATIENTS FAMILY WAS UPDATED ON STATUS. WILL CONTINUE TO MONITOR.
--- NOTE | 2020-10-12 20:35 | NUR ---
SITTING UP IN CHAIR ON ROUNDS. RESP NON-LABORED AT REST. ON VAPOTHERM 27 L/70% O2 SAT 91% BREATH SOUNDS DIMINISHED THROUGHOUT. NON-PRODUCTIVE COUGH NOTED. NO PERIPHERAL EDEMA, PULSES INTACT. SALINE LOCK INTACT IN LFA, SITE BENIGN. SHEET PILE DRIVER OPERATOR SHOWS SR. ACCU CHECK 361, COVERED PER MEDIUM DOSE SLIDNG SCALE PROTOCOL. HS SNACK PROVIDED. VOIDS CLEAR CANDIS URINE PER URINAL. DISCUSSED PLAN OF CARE. DENIES NEEDS AT THIS TIME. CALL NEWELL IN REACH.
--- NOTE | 2020-10-12 20:55 | NUR ---
MEDICATED WITH ROBITUSSIN FOR COUGH, MIRALAX FOR CONSTIPATION AND XANAX AND SONATA FOR ANXIETY AND SLEEP, PER PATIENT REQUEST.
--- NOTE | 2020-10-12 22:00 | NUR ---
PATIENT RETURNED TO BED INDEPENDENTLY. VSS. NEELAT RONDON. SR ON MONITOR.
[2020-10-13] VITALS (12 sets, daily range): BP systolic 127–154; BP diastolic 63–87
--- NOTE | 2020-10-13 00:10 | NUR ---
RESTING IN BED IN PRONE POSITION. CONTINUES ON VAPOTHERM 27 L/70% O2-O2 SAT 90% VSS. MONITOR SB-SR.
--- NOTE | 2020-10-13 02:10 | NUR ---
RESTING WITH EYES CLOSED. PATIENT REMAINS RESTING IN PRONE POSITION. VSS.
--- NOTE | 2020-10-13 04:10 | NUR ---
RESTING WITH EYES CLSOED. RESP NON-LABORED AT REST. CONTINUES TO REST IN PRONE POSITION. NO CHANGES TO REPORT.
--- NOTE | 2020-10-13 06:15 | NUR ---
PATIENT SLEPT WELL IN PRONE POSITION. VSS. O2 SATS MAINTAINED FROM 89-92% ON VAPOTHERM 27 L/70% O2. SB-SR ON MONITOR. IN NO APPARENT DISTRESS AT THIS TIME.
--- NOTE | 2020-10-13 06:28 | NUR ---
pt reting comfortably, laying flat in bed. nad. vss. no changes to [facility] paramaters at this time. industrial designer to monitor.
--- NOTE | 2020-10-13 07:20 | NUR ---
pt awake sitting in recliner; pt offers no complaint; assessment completed at this time; pt alert and oriented; denies pain; no n/v noted; resp even and unlabored; lungs clear/ diminished; skin color wnl; o2 per vapotherm at 27L with 70% FiO2; o2 sat 90%; dry cough noted; exertional sob noted; pt denies any resp difficulties/distress at present; IS present at bedside; creative services writer encouraged to to use q1 hr x10 reps; pt declined at this time stating it makes him cough; IS purpose explained; hr reg; strong pulses; no edema noted; sr on monitor; bilat pat hose intact; abd soft with bs present; no bm noted per creative services writer; pt voiding without complication; urinal at bedside; #20 saline locked to lfa; no redness or edema noted at site; plan of care/ am meds explained; pt compliant in regards to proning when in bed; call light within reach; will continue to monitor
--- NOTE | 2020-10-13 08:00 | NUR ---
awake in recliner eating breakfast; offers no complaints; sr on monitor; will continue to monitor
--- NOTE | 2020-10-13 08:40 | NUR ---
pt back to bed per self; proned; will continue to monitor
--- NOTE | 2020-10-13 09:00 | NUR ---
Dr Aparicio present at bedside to assess pt and discuss plan of care
--- NOTE | 2020-10-13 10:08 | NUR ---
resting in bed with eyes closed; prone positioned; iv intact; sr on monitor; o2 per vapotherm; call light within reach; will continue to monitor
--- NOTE | 2020-10-13 10:34 | NUR ---
pt in nad. vss. no changes in [facility] paramters. spo2=90. hand coke drawer to monitor.
--- NOTE | 2020-10-13 12:14 | NUR ---
awake in recliner; offers no complaints; iv intact; sr on monitor; o2 per vapotherm; pt deny needs/ discomfort; call light within reach; will continue to monitor
--- NOTE | 2020-10-13 13:41 | NUR ---
awake in recliner; iv patent with abt infusing without complication; assisted with bath; will continue to monitor
--- NOTE | 2020-10-13 14:20 | NUR ---
remains in recliner; offers no complaints; will continue to monitor
--- NOTE | 2020-10-13 15:54 | NUR ---
Patient did B LE AROM exercises in seated position: hip flexion, gluteal squeezes, hip abduction, knee extension, and hamstring curls for 10 reps x 2 sets with verbal and tactile cuing to help decrease trick movements and fall risks. Patient did sit to stand activity for 10 reps x 2 sets with CGA to SBA x 1 with patient exhibiting no SOB, but needed to rest for at least 1 to 2 minutes before doing other exercises (side steps x 10 reps).
--- NOTE | 2020-10-13 16:15 | NUR ---
awake in recliner; offers no complaints; very pleasant and talkative; deny pain; iv intact and patent; no redness or edema noted at site; sr on monitor; o2 per vapotherm; call light within reach; will continue to monitor
--- NOTE | 2020-10-13 18:09 | NUR ---
awake in recliner; offers no complaints; iv intact; o2 per vapotherm; sr on monitor; call light within reach
--- NOTE | 2020-10-13 20:00 | NUR ---
RESTING IN BED IN PRONE POSITION. AWAKENS TO NAME. RESP NON-LABORED. LUNGS DIMINISHED/CLEAR. ON VAPOTHERM 27 L/70% O2. O2 SAT 90% KNEE HIGH TEDS ON BILATERALLY, NO PERIPHERAL EDEMA OBSERVED. PERIPHERAL PULSES INATCT. SALINE LOCK INTACT IN LFA, SITE BENIGN. PLATEMAN SHOWS SR. DISCUSSED PLAN OF CARE. DENIES NEEDS AT THIS TIME. CALL IN REACH. ROBITUSSIN GIVEN ORDER FOR COUGH.
--- NOTE | 2020-10-13 21:00 | NUR ---
HS ACCU CHECK 421, COVERED PER MEDIUM DOSE SS PROTOCOL. MEDICATED WITH XANAX FOR ANXIETY AND SONATA FOR SLEEP ORDERED. PATIENT PROVIDED WITH HS SNACK. PATIENT TALKATIVE AND PLEASANT.
--- NOTE | 2020-10-13 22:00 | NUR ---
RESTING IN BED IN PRONE POSITION. VSS. RESP NON-LABORED. MONITOR SHOWS SR.
[2020-10-14] VITALS (12 sets, daily range): BP systolic 114–157; BP diastolic 75–90
--- NOTE | 2020-10-14 | NUR ---
RESTING WITHOUT COMPLAINTS. VSS. VAPOTHERM IN PLACE, SAME SETTINGS. SB-SR ON MONITOR.
--- NOTE | 2020-10-14 04:15 | NUR ---
AWAKE, WATCHING TV. RESP NON-LABORED. VSS. SB-SR ON MONITOR.
[2020-10-14 05:27] LABS: HEMATOCRIT 41.7 % (39.0-50.0); HEMOGLOBIN 13.9 g/dl (14.0-18.0); IMMATURE GRANULOCYTES 4.2 % (0.0-5.0); MEAN CELL VOLUME 90.3 fL CALC (80.0-100.0); MEAN CORPUSCULAR HGB 30.1 pG CALC (26.0-32.0); MEAN CORPUSCULAR HGB CONC 33.3 g/dL CAL (32.0-36.0); NEUT# 7.28 thou/uL (1.82-7.42); RED BLOOD COUNT 4.62 mill/uL (4.70-6.10); RED CELL DISTRI WIDTH 11.8 % (11.5-15.5)
[2020-10-14 05:33] LABS: ANION GAP 12 (6-22 (CALC)); BUN 19 mg/dL (9-20); BUN/CREATININE RATIO 23 (12-20 (CALC)); C-REACTIVE PROTEIN 4.2 mg/dL (0-0.9); CARBON DIOXIDE 27 mmol/l (22-30); CHLORIDE 95 mmol/l (95-108); CREATININE 0.8 mg/dL (0.7-1.3); GFR > 60 ML/MIN (>=60 (CALC)); GFR FOR AFR.AMER. > 60 ML/MIN (>=60 (CALC)); POTASSIUM 4.5 mmol/l (3.5-5.1); SODIUM 129 mmol/l (137-146)
--- NOTE | 2020-10-14 06:20 | NUR ---
PATIENT SLEPT WELL. IN PRONE POSITON WHEN IN BED. VSS. O2 SATS MAINTAINED >90% RESP NON-LABORED.
--- NOTE | 2020-10-14 07:05 | NUR ---
pt awake in recliner; no apparent distress noted; pt offers no complaints; assessment completed at this time; pt alert and oriented; denies pain/ discomfort; no n/v noted; resp even and unlabored; lungs clear upper ant/ diminished; skin color wnl; o2 per vapotherm at 27L with 70% FiO2; freq fire hydrant mechanic cough noted; hr reg; strong pulses; no edema noted; sr on monitor; bilat knee high pat hose intact; abd soft with bs present; no bm noted per video game script writer; pt voiding without complication; urinal at bedside; #22 saline locked to rfa; no redness or edema noted at site; plan of care/ am meds/ IS explained; call light within reach; will continue to monitor
--- NOTE | 2020-10-14 08:16 | NUR ---
awake in recliner; offers no complaints; iv intact; sr on monitor; o2 per vapotherm; call light within reach; will continue to monitor
--- NOTE | 2020-10-14 10:19 | NUR ---
remains in recliner; able to demonstrate use of IS; pt able to pull 500ml x mutliple attempts; IS encouraged q1 hr x10 reps; sr on monitor; o2 per vapotherm; call light within reach; will continue to monitor
--- NOTE | 2020-10-14 12:01 | NUR ---
awake in recliner eating lunch; offers no complaints; no distress noted; vapotherm cont at 25L with 70% o2; sr on monitor; iv intact; call light within reach; will continue to monitor
--- NOTE | 2020-10-14 14:07 | NUR ---
awake in recliner; offers no complaints; no apparent distress noted; o2 per vapotherm; sr on monitor; iv intact and patent; remdesivir infusing without complication; call light within reach; will continue to monitor
--- NOTE | 2020-10-14 16:11 | NUR ---
awake in recliner; no apparent distress noted; iv intact and patent; sr on monitor; o2 per vapotherm at 25L/ 68%; call light within reach; will continue to monitor
--- NOTE | 2020-10-14 18:05 | NUR ---
awake in recliner eating dinner; offers no complaints; iv intact and patent; sr on monitor; o2 per vapotherm at 25L and 68%; call light within reach
--- NOTE | 2020-10-14 20:30 | NUR ---
SITTING UP AT SIDE OF BED. PATIENT IN GOOD SPIRITS, PLEASANT AND TALKATIVE. PATIENT STATES HE IS FEELING MUCH TODAY. RESP NON-LABORED. USING VAPOTHERM 25 L/68% BREATH SOUNDS CLEAR BUT SLT DIMINISHED. DRY COUGH PRESNET. MEDICATED WITH ROBITUSSIN FOR COUGH. SALINE LOCK IN RFA, SITE BENIGN, FLUSHED AND PATENT. FLORIST SUPPLIES SALESPERSON SHOWS SR. DISCUSSED PLAN OF CARE. DENIES NEEDS AT THIS TIME.
--- NOTE | 2020-10-14 22:00 | NUR ---
RESTING IN BED IN PRONE POSITION. VSS. RESP NON-LABORED. SR ON MONITOR.
[2020-10-15] VITALS (12 sets, daily range): BP systolic 125–152; BP diastolic 71–92
--- NOTE | 2020-10-15 | NUR ---
RESTING IN BED WITH EYES CLOSED. RESTING IN PRONE POSITION. VSS. RESP NON-LABORED. SR ON MONITOR.
--- NOTE | 2020-10-15 01:55 | NUR ---
CONTINUES TO REST IN BED IN PRONE POSITION. VSS. O2 SAT 94-96%
--- NOTE | 2020-10-15 04:00 | NUR ---
SLEEPS FOR LONG INTERVALS. RESP NON-LABORED. HAS MAINTAINED O2 SAT >94% TONIGHT. VSS. SR ON MONITOR.
[2020-10-15 05:35] LABS: HEMATOCRIT 38.8 % (39.0-50.0); HEMOGLOBIN 13.2 g/dl (14.0-18.0); IMMATURE GRANULOCYTES 3.7 % (0.0-5.0); MEAN CELL VOLUME 89.8 fL CALC (80.0-100.0); MEAN CORPUSCULAR HGB 30.6 pG CALC (26.0-32.0); NEUT# 8.66 thou/uL (1.82-7.42); RED BLOOD COUNT 4.32 mill/uL (4.70-6.10); RED CELL DISTRI WIDTH 11.7 % (11.5-15.5)
[2020-10-15 05:46] LABS: ALBUMIN 2.7 g/dL (3.2-5.0); ALKALINE PHOSPHATASE 53 u/l (38-126); ANION GAP 11 (6-22 (CALC)); BILIRUBIN, TOTAL 0.5 mg/dL (0.0-1.4); BUN 23 mg/dL (9-20); BUN/CREATININE RATIO 28 (12-20 (CALC)); CARBON DIOXIDE 27 mmol/l (22-30); CHLORIDE 95 mmol/l (95-108); CREATININE 0.8 mg/dL (0.7-1.3); GFR > 60 ML/MIN (>=60 (CALC)); GFR FOR AFR.AMER. > 60 ML/MIN (>=60 (CALC)); POTASSIUM 4.3 mmol/l (3.5-5.1); SGOT/AST 23 u/l (17-59); SODIUM 129 mmol/l (137-146); TOTAL PROTEIN 5.6 g/dL (6.3-8.2)
--- NOTE | 2020-10-15 06:04 | NUR ---
NO CHANGES TO REPORTS. VSS. RESP EVEN AND UNLABORED. REMAINS ON VAPOTHERM.
--- NOTE | 2020-10-15 06:45 | NUR ---
REPORT RECEIVED FROM NURIA SUAREZ. JIMI GALVAN. M
--- NOTE | 2020-10-15 07:20 | NUR ---
PT SITTING UP IN RECLINER AT BEDSIDE. PT IS ALERT AND ORIENTED X3. SHIFT ASSESSMENT COMPLETED AT THIS TIME. IV PATENT X1. CALL LIGHT IN REACH. RT INTO TO TITRATE VAPOTHERM. WILL CONTINUE TO MONTIOR.
--- NOTE | 2020-10-15 07:45 | NUR ---
SET UP FOR AM MEAL. O2 TITRATED TO 22L
--- NOTE | 2020-10-15 09:56 | NUR ---
dr menendez at bedside at this time.
--- NOTE | 2020-10-15 11:00 | NUR ---
VAPOTHERM TITRATED TO 20L 65%. PT TOLERATING WELL.
--- NOTE | 2020-10-15 11:34 | NUR ---
PT RESTING PRON AT THIS TIME.
--- NOTE | 2020-10-15 11:43 | NUR ---
PT ASSISTED UP TO RECLINER FOR LUNCH., VAPOTHERM TITRATED TO 60 FIO2
--- NOTE | 2020-10-15 12:59 | NUR ---
[place] PHONED FOR UPDATE. UPDATE PROVIDED.
--- NOTE | 2020-10-15 13:03 | NUR ---
VAPOTHERM TITRATED TO 55% 18 LITERS. PT RESTING IN BED PRONE. O2 SATS REMAINS > 94%
--- NOTE | 2020-10-15 13:36 | NUR ---
O2 TITRATED TO 50% 16 LITERS
--- NOTE | 2020-10-15 13:45 | NUR ---
PHYSICAL THERAPY AT BEDSIDE AT THIS TIME.
--- NOTE | 2020-10-15 15:25 | NUR ---
PT UP IN CHAIR. O2 ON HI DENNY 15LITERS. PT TOLERATING WELL. O2 SATS >92%.
--- NOTE | 2020-10-15 17:56 | NUR ---
PT SITTING UP IN RECLINER EATING PM MEAL. PT TOLERATING WELL. CALL LIGHT IN REACH. WILL CONTINUE TO MONTIOR.
--- NOTE | 2020-10-15 20:06 | NUR ---
Patient presetns proning. He is exhausted but agrees to chest PT and gentle chest wall stretch with DBE. His activity is limited de to dyspnea Am Pac score is 10 indicating he would do well in [facility] as a DC plan
--- NOTE | 2020-10-15 20:20 | NUR ---
SITTING UP IN CHAIR.RESP EVEN AND UNLABORED. O2 ON AT 12 L HF NC. O2 SAT 93% BREATH SOUNDS CLEAR, SLT DIMINISHED. DRY, NON-PRODUCTIVE COUGH. SALINE LOCK INTACT IN RFA, SITE BENIGN. BILATERAL KNEE HIGH MOY HOSE IN PLACE. NEON SIGN INSTALLER SHOWING SR. DISCUSSED PLAN OF CARE. DENIES NEEDS AT THIS TIME. CALL NEWELL IN REACH.
--- NOTE | 2020-10-15 21:00 | NUR ---
HS ACCU CHECK 408, COVERED PER MEDIUM DOSE SS PROTOCOL. HS SNACK PROVIDED.
--- NOTE | 2020-10-15 22:00 | NUR ---
RESTING IN BED IN PRONE POSITION.
[2020-10-16] VITALS (12 sets, daily range): BP systolic 117–168; BP diastolic 70–94
--- NOTE | 2020-10-16 | NUR ---
PATIENT AWAKE ON ROUNDS SITTING UP IN RECLINER. VOIDS CLEAR YELLOW URINE IN LARGE AMOUNTS. PAITENT MOVES INDEPENDENTLY FROM CHAIR TO BED. NO SOB.
--- NOTE | 2020-10-16 02:00 | NUR ---
RESTING IN BED IN PRONE POSITION. MAINTAINING O2 SATS UPPER 90'S. RESP NON-LABORED. VSS. SB ON MONITOR.
--- NOTE | 2020-10-16 04:15 | NUR ---
BLOOD DRAWN BY HAT STEAMER FOR AM LABS. PATIENT HAVING FREQ COUGH THIS MONRING, MEDICATED WITH ROBITUSSIN ORDERD FOR COUGH. VSS. REMAINS ON O2 12 L HFNC.
[2020-10-16 04:37] LABS: HEMATOCRIT 40.6 % (39.0-50.0); HEMOGLOBIN 13.7 g/dl (14.0-18.0); IMMATURE GRANULOCYTES 2.8 % (0.0-5.0); MEAN CELL VOLUME 90.2 fL CALC (80.0-100.0); MEAN CORPUSCULAR HGB 30.4 pG CALC (26.0-32.0); MEAN CORPUSCULAR HGB CONC 33.7 g/dL CAL (32.0-36.0); NEUT# 10.28 thou/uL (1.82-7.42); RED BLOOD COUNT 4.5 mill/uL (4.70-6.10); RED CELL DISTRI WIDTH 11.7 % (11.5-15.5)
[2020-10-16 04:58] LABS: ALKALINE PHOSPHATASE 55 u/l (38-126); ANION GAP 11 (6-22 (CALC)); BILIRUBIN, TOTAL 0.6 mg/dL (0.0-1.4); BUN 25 mg/dL (9-20); BUN/CREATININE RATIO 24 (12-20 (CALC)); C-REACTIVE PROTEIN 1.9 mg/dL (0-0.9); CARBON DIOXIDE 31 mmol/l (22-30); CHLORIDE 95 mmol/l (95-108); CREATININE 1.1 mg/dL (0.7-1.3); GFR > 60 ML/MIN (>=60 (CALC)); GFR FOR AFR.AMER. > 60 ML/MIN (>=60 (CALC)); POTASSIUM 4.8 mmol/l (3.5-5.1); SGOT/AST 25 u/l (17-59); SODIUM 132 mmol/l (137-146); TOTAL PROTEIN 6.1 g/dL (6.3-8.2)
--- NOTE | 2020-10-16 06:20 | NUR ---
SLEPT WELL. VSS. RESP NON-LABORED. MONITOR SHOWS SB-SR WITH PAC'S AND OCC PVC'S. TOLERATING HF NC WELL, MAINTAINED O2 SATS IN UPPER 90'S THROUGHOUT THE NIGHT.
--- NOTE | 2020-10-16 06:45 | NUR ---
REPORT RECEIVED FROM NURIA SUAREZ. CARE ASSUMED.
--- NOTE | 2020-10-16 07:00 | NUR ---
PT UP IN RECLINER. PT IS AWAKE ALERT AND ORINETED X3. SHIFT ASSESSMENT COMPLETED AT THIS TIME. IV PATENT X1. PT ON HI DENNY O2 @ 12 L INCREASED TO 14L AT THIS TIME TO ALLOW RECOVERY DUE TO PT JUST GETTING UP AND AMBULATING IN ROOM. ENCOURAGED PT TO SLOW BREATHING AND TAKE DEEP BREATHS AND AVOID RAPID SHALLOW BREATHING. PT CONTINUES TO TRY TO CONVERSE WITH NURSE. PT ENCOURAGED TO FOCUS ON BREATHING RATHER THAN CONVERSATING. PT VERBALIZED UNDERSTANDING. WILL BEGIN TO WEAN O2 AFTER BREAKFAST. PT AGREEABLE WITH PLAN OF CARE. CALL LIGHT IN REACH.WILL CONTINUE TO MONITOR CLOSELY.
--- NOTE | 2020-10-16 07:45 | NUR ---
PT SET UP FOR AM MEAL
--- NOTE | 2020-10-16 08:20 | NUR ---
DR SCHNEIDER AT BEDSIDE AT THIS TIME.
--- NOTE | 2020-10-16 09:00 | NUR ---
O2 DECREASED TO 12L HI DENNY NASAL CANNULA. PT TOLERATING WELL. O2 SATS REMAIN > 92%.
--- NOTE | 2020-10-16 09:36 | NUR ---
Patient on a 12 liter high flow nasal cannula. O2 sat is 92%. Vapotherm standby. Patient stated to me he is annoyed that the nurse keeps turning down his oxygen. Recommended he speak to the nurse about it.
--- NOTE | 2020-10-16 10:00 | NUR ---
PT STANDING UP IN ROOM ADJUSTING CURTAIN AMBULATING. NO DISTRESS NOTED. O2 SATS > 92%. NO COMPLAINTS VOICED AT THIS TIME. CALL LIGHT IN REACH. WILL CONTINUE TO MONITOR.
--- NOTE | 2020-10-16 10:25 | NUR ---
PT CONVERSING IN ROOM IN FULL SENTENCES. NO SHORTNESS OF BREATH NOTED. NO DISTRESS NOTED. O2 SATS 94%.
--- NOTE | 2020-10-16 12:00 | NUR ---
PT SET UP FOR NOON MEAL AT THIS TIME. PT TOLERATING WELL. O2 SATS >94%. CALL LIGHT IN REACH. WILL CONTINUE TO MONITOR.
--- NOTE | 2020-10-16 14:55 | NUR ---
pt is on 12L HFNC 92%.
--- NOTE | 2020-10-16 16:32 | NUR ---
FAMILY DELIVERED FOOD FOR PATIENT. FOOD PROVIDED TO PATIENT. ACCU CHECK BTAINED 271. O2 TITRTATED TO 11L NASAL CANNULA. PT NOTED TO BE COUGHING. OFFERED COUGH MEDS. PT DECLINED STATED HE WAS TALKING TO MUCH AND THAT WAS CAUSING COUGH. ENCOURAGED PATIENT TO LET NURSE KNOW HE HE CHANGED HIS MIND. PT VERBLAIZED UNDERSTANDING.
--- NOTE | 2020-10-16 18:00 | NUR ---
PT RESTING IN BED IN PRONE POSITION. VSS ON MONITOR. CALL LIGHT IN REACH. WILL CONTINUE TO MONITOR.
--- NOTE | 2020-10-16 19:30 | NUR ---
SITTING UP IN CHAIR. RESP NON-LABORED. VSS. RESP NON-LABORED. O2 ON PER HFNC AT 11 L. O2 SAT 99% BREATH SOUNDS CLEAR, SLT DIMINISHED. SALINE LOCK IBTACT IN [facility], SITE BNEI. NURSE FIRST ASSIST SHOWS SR. DISCUSSED PLAN OF CARE. DENIES NEEDS AT THIS TIME. CALL NEWELL IN REACH.
--- NOTE | 2020-10-16 21:00 | NUR ---
HS ACCU CHECK 321, COVERED PER MEDIUM DOSE SS PROTOCOL. HS SNACK PROVIDED.
--- NOTE | 2020-10-16 22:00 | NUR ---
RESP NON-LABORED. VSS. RESTING IN BED IN PRONE POSITION.
[2020-10-17] VITALS (12 sets, daily range): BP systolic 116–168; BP diastolic 64–96
--- NOTE | 2020-10-17 | NUR ---
RESTING IN BED IN PRONE POSITION. RESP NON-LABORED. VSS. SR ON MONITOR.
--- NOTE | 2020-10-17 02:00 | NUR ---
SLEEPING IN PRONE POSITION. VSS. SR ON MONITOR.
--- NOTE | 2020-10-17 04:00 | NUR ---
NO CHANGES TO REPORT. VSS. RESP NON-LABORED. SR ON MONITOR.
--- NOTE | 2020-10-17 06:15 | NUR ---
RESTING IN BED IN NO APPARENT DISTRESS.
--- NOTE | 2020-10-17 06:45 | NUR ---
report received from richard cerda. care assumed.
--- NOTE | 2020-10-17 07:21 | NUR ---
lab at bedside at this time.
--- NOTE | 2020-10-17 07:30 | NUR ---
PT SITTING UP ON SIDE OF BED. PT IS ALERT AND ORIENTED X3. PT SEEMS TO BE SOMEWHAT DISGRUNTLED THIS AM IN GENERAL. PT VERY DEMANDING ABOUT EVERYTHING. HAD LONG DISCUSSION WITH PATIENT. PT STATES HE WANTS HIS O2 WEANED. EXPLAINED TO PT THAT WEANING IS DONE ONCE HE IS UP IN CHAIR AND O2 SATS ARE GOOD. EXPLAINED THAT GOALS ARE TO ABLE TO GET PATIENT UP AND HAVE STABLE O2 SATS. ULTIMATE GOAL IS TO BE DC'D HOME. ENCOURAGED USE OF INCENTIVE SPIROMETER. PATIENT TRANSFERRED SELF TO CHAIR. CALL LIGHT IN REACH. WILL CONTINUE TO MONITOR.
--- NOTE | 2020-10-17 07:44 | NUR ---
PT REMOVED O2 OFF OF HIMSELF TO SEE IF HIS O2 WOULD DROP WHILE AMBULAING IN ROOM. O2 SATS 75%. EXPLAINED TO PATIENT THAT IT IS THE JOB OF NURSING AND RESPIRATORY THERAPY TO TITRATE OXYGEN AND ASSIST IN WALKING. HE SHOULD BE DOING PHYSICAL THERPY AND INCENTIVE SPIROMETER.
[2020-10-17 07:46] LABS: HEMATOCRIT 40.5 % (39.0-50.0); HEMOGLOBIN 13.6 g/dl (14.0-18.0); IMMATURE GRANULOCYTES 4.1 % (0.0-5.0); MEAN CORPUSCULAR HGB 30.6 pG CALC (26.0-32.0); MEAN CORPUSCULAR HGB CONC 33.6 g/dL CAL (32.0-36.0); NEUT# 6.33 thou/uL (1.82-7.42); RED BLOOD COUNT 4.45 mill/uL (4.70-6.10); RED CELL DISTRI WIDTH 11.9 % (11.5-15.5)
[2020-10-17 08:28] LABS: ALBUMIN 2.6 g/dL (3.2-5.0); ALKALINE PHOSPHATASE 54 u/l (38-126); ANION GAP 10 (6-22 (CALC)); BILIRUBIN, TOTAL 0.6 mg/dL (0.0-1.4); BUN 24 mg/dL (9-20); BUN/CREATININE RATIO 24 (12-20 (CALC)); CARBON DIOXIDE 32 mmol/l (22-30); CHLORIDE 96 mmol/l (95-108); GFR > 60 ML/MIN (>=60 (CALC)); GFR FOR AFR.AMER. > 60 ML/MIN (>=60 (CALC)); POTASSIUM 4.2 mmol/l (3.5-5.1); SGOT/AST 25 u/l (17-59); SODIUM 133 mmol/l (137-146); TOTAL PROTEIN 5.5 g/dL (6.3-8.2)
--- NOTE | 2020-10-17 08:50 | NUR ---
DR SCHNEIDER INTO SEE PATIENT AND DISCUSS PLAN OF CARE.
--- NOTE | 2020-10-17 09:51 | NUR ---
HFNC DECREASED TO 10L. O2 SATURATION 95%.
--- NOTE | 2020-10-17 09:53 | NUR ---
O2 TITRATED TO 10L HI DENNY NASAL CANNULA. PT TOLERATING WELL O2 SATS 95%. PT ENCOURAGE TO STAND UP IN FRONT OF RECLINER AND DO MINIMAL EXCERCISE BUT TO NOT OVER EXERT SELF. PT VERBALIZED UNDERSTANDING.
--- NOTE | 2020-10-17 11:00 | NUR ---
PT REPORTS STANDING UP AND EXCERCISING AND TOLERATING WELL.
--- NOTE | 2020-10-17 11:45 | NUR ---
PT SET UP FOR NOON MEAL. O2 TITRATED. TO 9L. O2 SAT 95%. PT TOLERATING WELL. CALL LIGHT IN REACH. WILL CONTINUE TO MONITOR.
--- NOTE | 2020-10-17 13:30 | NUR ---
O2 TITRATED TO 8L NASAL CANNULA. PT TOLERATED WELL.
--- NOTE | 2020-10-17 14:30 | NUR ---
PT RESTING IN BED PRONE. NO DISTRESS NOTED. CALL LIGHT IN REACH. WILL CONTINUE TO MONITOR.
--- NOTE | 2020-10-17 16:39 | NUR ---
O2 TITRATED TO 7L. PT O2 SATS 94%. PT TOLERATED WELL.
--- NOTE | 2020-10-17 17:45 | NUR ---
PT SITTING UP EATING DINNER. O2 DECREASED TO 6L NASAL CANNULA. PT O2 SATS 94%. CALL LIGHT IN REACH. WILL CONTINUE TO MONITOR.
--- NOTE | 2020-10-17 20:01 | NUR ---
Patient is already prone. He requests no PT intervention dayne to exhaustion
--- NOTE | 2020-10-17 21:55 | NUR ---
PATIENT SITS IN RECLINER. IS ALERT AND ORIENTED X4, ON 6 L/MIN HIGH FLOW NC H, DID WEAN TO 5 L/MIN, WILL CONTINUE TO MONITOR. NURSE ASSESSMENT PERFORMED, PATIENT DOES BEGIN TO COUGH WHEN TAKING DEEP BREATHS FOR NURSE ASSESSMENT, DRY INVENTORY ASSOCIATE AND DRIVER COUGH NOTED. IV X1 INTACT. MOY HOSE ON. PATIENT DENIES PAIN, WATCHES TV. SR ON TELEMETRY. BP 160'S SYSTOLIC. ABLE TO SWALLOW MEDICATIONS WITHOUT DIFFICULTY, REFUSES COUGH MEDICATION AT THIS TIME. NO ACUTE DISTRESS SHOWN, NO NEEDS AT THIS TIME, USES URINAL, URINE YELLOW/CLEAR. CALL LIGHT WITHIN REACH.
[2020-10-18] VITALS (9 sets, daily range): BP systolic 121–156; BP diastolic 67–85
--- NOTE | 2020-10-18 02:06 | NUR ---
O2 WEANED TO 4 L/MIN NC, O2 SAT NOW 100%, LAYS PRONE. NO ACUTE DISTRESS SHOWN.
[2020-10-18 05:42] LABS: HEMATOCRIT 40.8 % (39.0-50.0); HEMOGLOBIN 13.7 g/dl (14.0-18.0); IMMATURE GRANULOCYTES 3.4 % (0.0-5.0); MEAN CELL VOLUME 91.5 fL CALC (80.0-100.0); MEAN CORPUSCULAR HGB 30.7 pG CALC (26.0-32.0); MEAN CORPUSCULAR HGB CONC 33.6 g/dL CAL (32.0-36.0); NEUT# 5.89 thou/uL (1.82-7.42); RED BLOOD COUNT 4.46 mill/uL (4.70-6.10)
[2020-10-18 06:14] LABS: ALBUMIN 2.7 g/dL (3.2-5.0); ALKALINE PHOSPHATASE 59 u/l (38-126); ANION GAP 10 (6-22 (CALC)); BILIRUBIN, TOTAL 0.5 mg/dL (0.0-1.4); BUN 20 mg/dL (9-20); BUN/CREATININE RATIO 21 (12-20 (CALC)); C-REACTIVE PROTEIN 1.9 mg/dL (0-0.9); CARBON DIOXIDE 33 mmol/l (22-30); CHLORIDE 94 mmol/l (95-108); CREATININE 0.9 mg/dL (0.7-1.3); GFR > 60 ML/MIN (>=60 (CALC)); GFR FOR AFR.AMER. > 60 ML/MIN (>=60 (CALC)); POTASSIUM 4.3 mmol/l (3.5-5.1); SGOT/AST 28 u/l (17-59); SODIUM 133 mmol/l (137-146); TOTAL PROTEIN 5.6 g/dL (6.3-8.2)
--- NOTE | 2020-10-18 06:17 | NUR ---
PATIENT RESTS IN BED, NO ACUTE DISTRESS SHOWN, O2 SAT 94%-95% ON 4 L/MIN HIGH FLOW NC. RESP RATE 21.
--- NOTE | 2020-10-18 06:45 | NUR ---
REPORT RECEIVED FROM BEBETO SUAREZ. CARE ASSUMED.
--- NOTE | 2020-10-18 07:45 | NUR ---
PT SEATED UP IN RECLINER AT BEDSIDE. PT IS ALERT AND ORIENED X3. SHIFT ASSESSMENT COMPLETED AT THIS TIME. IV PATENT X3. PT PLACED ON O2 3L NASAL CANNULA WITH EXENSION TUBING AND ENCOURAGED TO AMBULATE IN ROOM. PT VERBALIZED UNDERSTANDING. CALL LIGHT IN REACH. WILL CONTINUE TO MONITOR.
--- NOTE | 2020-10-18 08:00 | NUR ---
PT SET UP FOR AM MEAL.
--- NOTE | 2020-10-18 08:07 | NUR ---
REPORT RECEIVED FROM BEBETO SUAREZ. CARE ASSUMED.
--- NOTE | 2020-10-18 09:30 | NUR ---
PT AMBULATING IN ROOM O2 SATS 93% ON 3L NC
--- NOTE | 2020-10-18 10:01 | NUR ---
DR SCHNEIDER AT BEDSIDE AT THIS TIME
--- NOTE | 2020-10-18 10:31 | NUR ---
COVID SWAB OBTAINED AND SENT TO LAB FOR REFERENCE.
--- NOTE | 2020-10-18 11:32 | NUR ---
PT TAKEN OFF OF AIR/CONTACT PRECAUTIONS
--- NOTE | 2020-10-18 12:00 | NUR ---
PT SET UP FOR NOON MEAL. RESP ARE EVEN AND UNLABORED. NO DISTRESS NOTED. CALL LIGHT IN REACH. WILL CONTINUE TO MONITOR.
--- NOTE | 2020-10-18 14:00 | NUR ---
PT SITTING UP IN RECLINER AT BEDSIDE. RESP ARE EVEN AND UNLABORED. NO DISTRESS NOTED. CALL LIGHT INR EACH. WILL CONTINUE TO MONITOR.
--- NOTE | 2020-10-18 15:40 | NUR ---
REPORT CALLED TO KENJI SUAREZ.
--- NOTE | 2020-10-18 16:20 | NUR ---
[facility] ACCOMAPNIED BY NURSE AND FUNERAL DIRECTOR. PT TOLERATED TRANSFER WELL.
--- NOTE | 2020-10-18 16:30 | NUR ---
PT ARRIVED FROM THE ICU IN A WHEELCHAIR AND O2 NC. AT HIS SIDE. INTO THE BEDSIDE CHAIR. ORIENTED TO THE ROOM CALL LIGHT BED AND TV. NO RESP DISTRESS NOTED. DENIES PAIN. CALL LIGHT IN REACH, ALL SAFTY MEASURES IN PLACE, WILL CONTINUE OT MONIOTR THE PATIENT.
--- NOTE | 2020-10-18 17:41 | NUR ---
BACK INTO BED PT RESTING COMOFRTABLE NO DISTRESS NOTED AT THIS TIME. WILL CONTINUE OT MONIOTR THE PATIENT.
--- NOTE | 2020-10-18 20:40 | NUR ---
PT IS IN THE SHOWER, FORM MAKER PLASTER IS HELPING.
--- NOTE | 2020-10-18 20:54 | NUR ---
ENTERED THE ROOM TO FIND THE PT SITTING IN THE CHAIR NEXT TO THE BED BREATHING SLIGHTLY DISTRESSED. HE REPORTS THAT HE TOOK HIS OXYGEN OFF TO GET HIS SHOWER BECAUSE IT WOULD NOT REACH. HE DOES APPEAR TO HAVE EXTENSION TUBING ON HIS OXYGEN AT THIS TIME, BUT HE REPORTED THAT IT STILL DIDN'T REACH. I ADVISED HIM TO BE SURE AND CALL US FOR ANY OF THOSE TYPE OF SITUATIONS OR NEEDS. NC OXYGEN IS ON PT AT THIS TIME, SAT LEVEL MEASURED AT 88% AT THIS TIME. OXYGEN INCREASED TO 4L AND HIS OXYGEN CAME UP TO 92% AND HOLDING.
--- NOTE | 2020-10-18 21:15 | NUR ---
PT REPORTS FEELING BETTER, HE STILL DOES NOT MAINTAIN ABOVE 91% ON 3L. I KEPT HIS OXYGEN AT 4L AT THIS TIME. APPEARS CALM, HE IS SITTING IN THE CHAIR TALKATIVE. I ASKED HIM TO PERFORM IS BREATHES FOR ME, VERY SHALLOW BREATHS @500 MEASURED ON IS. I DID LEAVE IT NEXT TO HIM, IT WAS PUT AWAY IN THE CABINET WHEN I GOT HERE THIS SHIFT. HE AGREED TO USE IT ONCE IN AWHILE WHEN HE THINKS ABOUT IT. I ENCOURAGED ONE LONG SLOW DEEP BREATH PER 10 MINUTES WHEN HE IS AWAKE.
--- NOTE | 2020-10-18 21:36 | NUR ---
PT MEDICATED WITH INSULIN FOR ACCU CHECK OF 234. PT REPORTS FEELING MUCH BETTER. LEFT SITTING IN CHAIR NEXT TO THE BED WITH LIGHTS OUT AND TV ON.
[2020-10-19 04:29] VITALS: BP 133/87
--- NOTE | 2020-10-19 04:31 | NUR ---
PT SLEEPING, NURSING EDUCATION CONSULTANT IN OBTAINING V/S. NO S/O DISTRESS. OXYGEN SAT LEVEL AT 98% ON 4L. TITRATED DOWN TO 3L AT THIS TIME.
--- NOTE | 2020-10-19 07:00 | NUR ---
PT REPORT RECEIVED FROM NIGHT NURSELASHANDA
[2020-10-19 07:54] LABS: HEMATOCRIT 42.5 % (39.0-50.0); HEMOGLOBIN 14.2 g/dl (14.0-18.0); IMMATURE GRANULOCYTES 2.3 % (0.0-5.0); MEAN CELL VOLUME 91.8 fL CALC (80.0-100.0); MEAN CORPUSCULAR HGB 30.7 pG CALC (26.0-32.0); MEAN CORPUSCULAR HGB CONC 33.4 g/dL CAL (32.0-36.0); NEUT# 6.61 thou/uL (1.82-7.42); RED BLOOD COUNT 4.63 mill/uL (4.70-6.10); RED CELL DISTRI WIDTH 12.1 % (11.5-15.5)
--- NOTE | 2020-10-19 08:00 | NUR ---
PT WAS FOUND RESTING IN BED IN SEMI-QUINN'S POSITION;PT IS A&OX3;VS AND ASSESSMENT WERE COMPLETED;HEART SOUNDS ARE REGULAR IN RATE AND RHYTHM;LUNG SOUNDS ARE CLEAR AND DIMINISHED IN LOWER LOBES;PT IS REPORTING A NON-PRODUCTIVE DRY COUGH AND EXERTIONAL SOB;RESPIRATIONS ARE EVEN AND UNLABORED ON O2@3L VIA NC;#22G IV IN RFA IS SL, PATENT AND APPEARS FREE OF COMPLICATIONS;SAFETY PRECAUTIONS IN PLACE;CALL LIGHT WITHIN REACH;PT ENCOURAGED TO CALL WITH ANY NEEDS OR CONCERNS;WILL CONTINUE TO MONITOR.
[2020-10-19 08:02] LABS: ALKALINE PHOSPHATASE 62 u/l (38-126); ANION GAP 10 (6-22 (CALC)); BUN 17 mg/dL (9-20); BUN/CREATININE RATIO 17 (12-20 (CALC)); CARBON DIOXIDE 33 mmol/l (22-30); CHLORIDE 95 mmol/l (95-108); GFR > 60 ML/MIN (>=60 (CALC)); GFR FOR AFR.AMER. > 60 ML/MIN (>=60 (CALC)); POTASSIUM 4.1 mmol/l (3.5-5.1); SGOT/AST 26 u/l (17-59); SODIUM 134 mmol/l (137-146); TOTAL PROTEIN 6.1 g/dL (6.3-8.2)
[2020-10-19 08:03] LABS: BILIRUBIN, TOTAL 0.8 mg/dL (0.0-1.4)
[2020-10-19 08:20] VITALS: BP 135/80
--- NOTE | 2020-10-19 12:00 | NUR ---
PT WAS FOUND RESTING IN BED EATING LUNCH;PT WAS GIVEN A 6-MINUTE WALK TEST AND PT O2 SAT WENT DOWN TO 87%;PT HAD EXERTIONAL SOB AND RESPIRATIONS WERE LABORED UPON RETURNING TO ROOM;PT O2 WAS TITRATED UP TO 4L VIA NC AT THIS TIME;WILL CONTINUE TO MONITOR O2 SATS AND TITRATE ACCORDINGLY;SAFETY PRECAUTIONS IN PLACE;CALL LIGHT WITHIN REACH;WILL CONTINUE TO MONITOR.
--- NOTE | 2020-10-19 13:00 | NUR ---
6 MINUTE WALK TEST WAS COMPLETED ON PT;PAPERWORK WAS FILLED OUT FOR CHART
--- NOTE | 2020-10-19 14:03 | NUR ---
Physical Therapy Note Patient seen and treated today. Patent identified by full name and date of . Physical Therapy Management 1. Prone to supine and supine to prone. 2. Supine to sit and sit to supine. 3. Sit to stand and stand to sit. 4. Transfer training 5. Incentive spirometer training. 6. Sitting tolerance x 10-15 minutes. 7. Standing balance/tolerance x 3-5 minutes. Rest periods in between exercises. Patient was able to tolerate all exercises with minimal fatigue. Patient was able to get back to the bed after physical therapy session.
[2020-10-19 15:33] VITALS: BP 125/75
--- NOTE | 2020-10-19 16:00 | NUR ---
PT WAS FOUND SITTING IN BEDSIDE CHAIR VISITING WITH ;PT HAS BEEN USING IS AND PRONING THROUGHOUT THE DAY;PT IS STILL REPORTING EXERTIONAL SOB AND STATES THAT HE FEELS LIKE HIS BREATHING IS SLIGHTLY MORE DIFFICULT THAN YESTERDAY BUT HE ALSO DID THE WALK TEST;O2@4L VIA NC IS IN PLACE;O2 SATS WERE CHECKED AND FOUND TO BE @ 94%;INFORMED PT THAT I WOULD CONTINUE TO MONITOR O2 SATS AND BREATHING/RESPIRATIONS;ALSO REQUESTED PT LET US KNOW IF HE FELT ANY MORE DISCOMFORT OR DIFFICULTIES;#22G IV IN RFA IS SL, PATENT AND APPEARS FREE OF COMPLICATIONS AT THIS TIME;SAFETY PRECAUTIONS IN PLACE;CALL LIGHT WITHIN REACH;WILL CONTINUE TO MONITOR.
--- NOTE | 2020-10-19 18:00 | NUR ---
PT STATES THAT BREATHING HAS IMPROVED;PT CONTINUES TO BE ON O2@4L VIA NC;O2 SATS ARE CURRENTLY @94%
[2020-10-19 20:00] VITALS: BP 131/76
--- NOTE | 2020-10-19 20:00 | NUR ---
PATIENT ASSESSMENT COMPLETE. PATIENT COMPLAINED OF LEFT SHOULDER PAIN. MEDICATED WITH TYLENOL WITH POSITIVE EFFECT. PATIENT STILL EXPERIENCING DYSPNEA ON EXERTION. CURRENTLY ON 4L VIA NASAL CANULA. BED IN LOW POSITION. CALL LIGHT WITHIN REACH.
--- NOTE | 2020-10-20 01:28 | NUR ---
PATIENT RESTING WITH EYES CLOSED. RESPIRATIONS EVEN. NO ACUTE DISTRESS NOTED.
[2020-10-20 04:00] VITALS: BP 133/62
--- NOTE | 2020-10-20 04:22 | NUR ---
PATIENT RESTING QUIETLY IN BED. TYLENOL GIVEN WITH POSITIVE EFFECT. NO ACUTE DISTRESS NOTED.
[2020-10-20 05:02] LABS: HEMATOCRIT 40.9 % (39.0-50.0); HEMOGLOBIN 13.3 g/dl (14.0-18.0); IMMATURE GRANULOCYTES 1.9 % (0.0-5.0); MEAN CELL VOLUME 92.5 fL CALC (80.0-100.0); MEAN CORPUSCULAR HGB 30.1 pG CALC (26.0-32.0); MEAN CORPUSCULAR HGB CONC 32.5 g/dL CAL (32.0-36.0); NEUT# 7.72 thou/uL (1.82-7.42); RED BLOOD COUNT 4.42 mill/uL (4.70-6.10); RED CELL DISTRI WIDTH 12.1 % (11.5-15.5)
[2020-10-20 05:25] LABS: ALBUMIN 2.8 g/dL (3.2-5.0); ALKALINE PHOSPHATASE 61 u/l (38-126); ANION GAP 9 (6-22 (CALC)); BILIRUBIN, TOTAL 0.9 mg/dL (0.0-1.4); BUN 13 mg/dL (9-20); BUN/CREATININE RATIO 16 (12-20 (CALC)); C-REACTIVE PROTEIN 7.1 mg/dL (0-0.9); CARBON DIOXIDE 30 mmol/l (22-30); CHLORIDE 97 mmol/l (95-108); CREATININE 0.9 mg/dL (0.7-1.3); GFR > 60 ML/MIN (>=60 (CALC)); GFR FOR AFR.AMER. > 60 ML/MIN (>=60 (CALC)); POTASSIUM 4.2 mmol/l (3.5-5.1); SGOT/AST 26 u/l (17-59); SODIUM 132 mmol/l (137-146); TOTAL PROTEIN 5.9 g/dL (6.3-8.2)
[2020-10-20 07:56] VITALS: BP 134/86
--- NOTE | 2020-10-20 08:11 | NUR ---
ASSESSMENT DONE. PATIENT IS SITTING IN CHAIR. O2 AT 4L VIA NC. O2 READING AT 96%, BUT WHEN MOVING OR EATING PATIENT STATED HE FEELS SOB. LUNGS SOUND DIMINISHED. PATIENT STATED PAIN IN LEFT SHOULFER AND NECK /10. MEDICATED PATIENT WITH TYLENOL. PATIENT DENIES ANY OTHER NEEDS AT THIS TIME. CALL LIGHT IN REACH.
--- NOTE | 2020-10-20 12:00 | NUR ---
PATIENT IS SITTING IN THE CHAIR WITH NO DISTRESS NOTED O2 AT 4L VIA NC. PATIENT DENIES PAIN AT THIS TIME. CALL LIGHT IN REACH.
[2020-10-20 15:04] VITALS: BP 129/74
--- NOTE | 2020-10-20 16:05 | NUR ---
Patient did sit to stand activity for 5 reps with 1 to 2 rest periods between reps (using 4 liters of oxygen) due to SOB issues. Patient also did seated knee extension, hip flexion, hamstring curls, and hip adduction and abduction exercises for 10-15 reps x 1 set with occasional verbal and tactile cuing to help decrease fall risks and trick movements. Patient also walked for 5 to 8 feet x 3 reps on level surfaces without assistive devices with no significant lateral swaying, but with SOB (resting 1 to 2 times during the activity to decrease fall risks).
--- NOTE | 2020-10-20 16:15 | NUR ---
PATIENT IS STANDING IN ROOM WITH O2 AT 4L VIA NC . PATIENT DENIES PAIN OR NEEDS AT THIS TIME. CALL LIGHT IN REACH.
[2020-10-20 20:00] VITALS: BP 139/82
--- NOTE | 2020-10-20 20:30 | NUR ---
PATIENT IS ALERT AND ORIENTED. ABLE TO MAKE NEEDS KNOWN. RESPIRATIONS EVEN ON 4 L N/C. SATTING MID 90S. DECREASED O2 TO 3L TO SEE HOW PATIENT DOES. NO ACUTE DISTRESS NOTED. MEDICATED WITH TYLENOL FOR LEFT SHOULDER PAIN WITH POSITIVE EFFECT. BED IN LOW POSITION. CALL LIGHT WITHIN REACH.
[2020-10-21 04:00] VITALS: BP 133/84
[2020-10-21 07:48] VITALS: BP 156/94
--- NOTE | 2020-10-21 07:48 | NUR ---
PT SITTING IN CHAIR. A&O X4. NO DISTRESS NOTED. O2 VIA NC @3L IN PLACE. PT TOLERATING WELL. EXERTIONAL SOB ACCOMPANIED BY GOODYEAR WELTER COUGH NOTED. CLEAR/DIMINISHED BREATH SOUNDS UPON AUSCULTATION. ACTIVE BOWEL SOUNDS X4 QUADRANTS. #20 LAC HEALTHY AND PATENT. DENIES ANY PAIN AT THIS TIME. ASSESSMENT COMPLETED. DISCUSSED POC. CALL LIGHT WITHIN REACH.
--- NOTE | 2020-10-21 12:22 | NUR ---
PT SITTING IN CHAIR. NO DISTRESS NOTED. NO NEEDS AT THIS TIME. CALL LIGHT WITHIN REACH.
--- NOTE | 2020-10-21 15:45 | NUR ---
PT LAYING IN BED. O2 VIA NC @3L, HUMIDIFIED AT THIS TIME. NO OTHER NEEDS AT THIS TIME. CALL LIGHT WITHIN REACH.
[2020-10-21 16:44] VITALS: BP 132/93
[2020-10-21 19:38] VITALS: BP 143/89
[2020-10-21 19:40] VITALS: BP 140/84
--- NOTE | 2020-10-21 20:30 | NUR ---
PATIENT UP IN CHAIR. ALERT AND ORIENTED X3. C/O L SHOULDER PAIN 06/06. REFUSED TYLENOL. EXERTIONAL SOB NOTED. ASSESSMENT COMPLETE AND CHARTED. FALL PRECAUTIONS IN PLACE.
--- NOTE | 2020-10-22 00:50 | NUR ---
PATIENT RESTING QUIETLY. NOT ACUTE DISTRESS NOTED.
[2020-10-22 04:00] VITALS: BP 143/88
--- NOTE | 2020-10-22 04:00 | NUR ---
RESTING QUIETLY. NO ACUTE DISTRESS NOTED.
[2020-10-22 05:56] LABS: HEMATOCRIT 37.5 % (39.0-50.0); HEMOGLOBIN 12.3 g/dl (14.0-18.0); IMMATURE GRANULOCYTES 1.1 % (0.0-5.0); MEAN CELL VOLUME 92.8 fL CALC (80.0-100.0); MEAN CORPUSCULAR HGB 30.4 pG CALC (26.0-32.0); MEAN CORPUSCULAR HGB CONC 32.8 g/dL CAL (32.0-36.0); NEUT# 4.03 thou/uL (1.82-7.42); RED BLOOD COUNT 4.04 mill/uL (4.70-6.10); RED CELL DISTRI WIDTH 12.1 % (11.5-15.5)
[2020-10-22 06:23] LABS: ALBUMIN 2.7 g/dL (3.2-5.0); ALKALINE PHOSPHATASE 61 u/l (38-126); ANION GAP 9 (6-22 (CALC)); BUN 15 mg/dL (9-20); BUN/CREATININE RATIO 18 (12-20 (CALC)); C-REACTIVE PROTEIN 6.2 mg/dL (0-0.9); CARBON DIOXIDE 30 mmol/l (22-30); CHLORIDE 99 mmol/l (95-108); CREATININE 0.8 mg/dL (0.7-1.3); GFR > 60 ML/MIN (>=60 (CALC)); GFR FOR AFR.AMER. > 60 ML/MIN (>=60 (CALC)); SGOT/AST 25 u/l (17-59); SODIUM 134 mmol/l (137-146); TOTAL PROTEIN 5.8 g/dL (6.3-8.2)
[2020-10-22 06:26] LABS: BILIRUBIN, TOTAL 0.4 mg/dL (0.0-1.4)
[2020-10-22 07:30] VITALS: BP 130/83
--- NOTE | 2020-10-22 07:30 | NUR ---
PATIENT SITTING UP IN CHAIR AT THIS TIME. PATIENT 02 ON AT THIS TIME AT 3 LITERS. CALL LIGHT WITHIN REACH. CHILD'S NURSE DONE AT THIS TIME. LUNG WHITLEY ARE CLEAR IN UPPERS AND DIMINISHED IN LOWER WHITLEY. PATIENT STATES HE FEELS MUCH BETTER HOWEVER DOES WORK WITH INSENTIVE SPIROMETER AND CAN ONLY REACH 500. TELE MONITOR ON AT THIS TIME AND BEING MONITORED BY ED.
--- NOTE | 2020-10-22 09:57 | NUR ---
PATIENT GIVEN 650MG OF TYLENOL AT THIS TIME PATIENT STATED "I'M COLD MY FEET ARE HURTING". WHEN ASKED IF PATIENT HAS A HISTORY OF GOUT HE STATED YES BUT THIS IS NOT GOUT MY FEET ARE COLD. WILL CONTINUE TO MONITOR.
--- NOTE | 2020-10-22 10:35 | NUR ---
PHYSICAL THERAPY CALLED AT THIS TIME TO REQUEST THAT THEY WORK WITH PATIENT TODAY PER DR. JACKSON'S REQUEST.
--- NOTE | 2020-10-22 10:50 | NUR ---
PATIENT STATES HIS FEET ARE FEELING BETTER AND HIS PAIN IS A "3" OUT OF A PAIN SCALE OF 0-10. WILL CONTINUE TO MONITOR.
--- NOTE | 2020-10-22 11:31 | NUR ---
PATIENT GIVEN 5MG/325MG OF LORITAB 1 PO FOR PAIN OF 6 IN FEET. PATIENT EDUCATED ON CALLING OUT FOR HELP PRIOR TO GETTING OUT OF BED. SIDERAILS ARE UP CALL LIGHT IS WITHIN REACH. WILL CONTINUE TO MONITOR.
--- NOTE | 2020-10-22 11:47 | NUR ---
PATIENT LAYING IN BED AT THIS TIME. 02 REMAINS ON AND IS ON 3LITERS. PATIENT C/O PAIN IN FEET AND WAS PREVIOUSLY MEDICATED AND STATES THE MEDS "ARE WORKING". SIDERAILS ARE UP CALL LIGHT IS WITHIN REACH WILL WILL CONTINUE TO MONITOR.
[2020-10-22 13:35] VITALS: BP 111/76
[2020-10-22] MEDS ORDERED: AMLODIPINE BESYL5 MG PO (15:51)
--- NOTE | 2020-10-22 16:10 | NUR ---
SIVAN SIITING UP IN CHAIR AT BEDSIDE AT THIS TIME. PATIENT DENEIS ANY NEEDS CURRENTLY AND CALL LIGHT IS WIHTIN REACH AND 02 REMAINS ON AT 3 LITERS AT THIS TIME.
[2020-10-22] MEDS ORDERED: VENTOLIN HFA108 MCG IN (16:18)
[2020-10-22] MEDS ORDERED: TRI-BUFF ASA325 M2 PO (16:19)
[2020-10-22] MEDS ORDERED: METFORMIN500 M2 PO (16:20)
[2020-10-22] MEDS ORDERED: LANTUS SOL100 UNIT/M SC (16:27)
[2020-10-22] MEDS ORDERED: HYDROCO/APAP1 TA9 PO (16:29)
--- NOTE | 2020-10-22 17:36 | NUR ---
PATIENT D/C AT THIS TIME. PATIENT VERBALIZES UNDERSTANDING OF D/C INSTRUCTIONS 02 WAS DROPPED OFF AND PATIENT UNDERSTANDS HOW TO USE O2. IV REMOVED AT THIS TIME.
--- NOTE | 2020-10-22 18:30 | NUR ---
Discharge instructions given. Patient verbalizes understanding of same. Discharged in stable condition via Wheelchair to Home with family. All belongings sent with pt. PATIENT D/C AT THIS TIME WITH HOME O2 AND [facility] WILL CALL IN AM. PATIENT VERBALIZES D/C UNDERSTANDING OF D/C INSTRUCTIONS.
--- NOTE | 2020-10-22 19:26 | NUR ---
SPOKE WITH PT'S PHARMACY CLOSED BEFORE SHE COULD GET TO THEM. WILL METEOROLOGICAL EQUIPMENT REPAIRER IN THE AM
--- NOTE | 2020-10-22 21:48 | NUR ---
Patient with left ankle pain. He demonstrates tendonitis of the anterior tibials. Otherwise he has prgressed well and is independent iwth [facility] and all activity. I went ahead and provided a FWW for him to use while in house as he has a history of gout and this may be related . Plan is to DC for now `
--- NOTE | 2020-10-24 11:24 | NUR ---
Pneumonia post discharge follow up call completed today, 10/24/20/ Pt. states he is doing well. Pt. is ambulating with aid of a walker and feels he will only need the assistive device for another day or two. Pt. has a follow up appt. scheduled in 1 week. Discharge medications were not obtained due to insurance denial ([facility] and [facility]). No fever, chills, or unusual SOB since discharge. No questions or needs voiced by patient. Made director of recruiting aware of pt. issues with medications/
== END 2020-10-22 18:30 | disposition home health service (06) | DRG 177 ==
LOC: ED 11:32 → ED-I 16:40 → ED 16:53 → MS2 16:54 → ICU 10-06 09:20 → MS2 10-18 16:30
PROVIDERS: Emergency Medicine; Internal Medicine; Nurse Practitioner; Physician Assistant; ADMIT Internal Medicine; ATTEND Internal Medicine
PROC: XW033E5 Introduction of Remdesivir Anti-infective into Peripheral Vein, Percutaneous Approach, New Technology Group 5 (ICD-10-PCS; principal; 2020-10-06)
DX: U07.1 COVID-19 (principal); J12.82 Pneumonia due to coronavirus disease 2019; J96.01 Acute respiratory failure with hypoxia; I10 Essential (primary) hypertension; E11.65 Type 2 diabetes mellitus with hyperglycemia; D64.9 Anemia, unspecified; G47.00 Insomnia, unspecified; F41.9 Anxiety disorder, unspecified; R04.0 Epistaxis; R25.2 Cramp and spasm; M79.605 Pain in left leg; M79.604 Pain in right leg; Z66 Do not resuscitate
CPT/HCPCS: J1650; J7626; Q9967

== ENCOUNTER 2022-05-20 06:56 | Day surgery (SDC) | payer OTHER ==
[~2022-05-20] VITALS: Ht 177.8 cm; Wt 86.2 kg
[~2022-05-20 06:56] MED LIST changes: +AMLODIPINE BESY10 MG PO; +AMLODIPINE BESYL5 MG PO; +ASPIRIN LOW81 M1 PO; +HYDROCO/APAP1 TA9 PO; +JARDIANCE25 MG; +LANTUS SOL100 UNIT/M SC; +METFORMIN HCL500 M2 PO; +METFORMIN500 M2 PO; +NEXIUM20 M1 PO; +OZEMPIC2 MG/1.5 M; +ROSUVASTATIN CA10 MG PO; +RYBELSUS3 MG; +TRI-BUFF ASA325 M2 PO; +VENTOLIN HFA108 MCG IN
[2022-05-20 09:20] VITALS: BP 113/81
== END 2022-05-20 09:30 | disposition home or self-care (01) | DRG 395 ==
LOC: ENDO 06:56 → ORM 08:00 → ENDO 09:30
PROVIDERS: ATTEND Surgery
PROC: 0DBN8ZX Excision of Sigmoid Colon, Via Natural or Artificial Opening Endoscopic, Diagnostic (ICD-10-PCS; principal; 2022-05-20)
PROC: 0DBG8ZX Excision of Left Large Intestine, Via Natural or Artificial Opening Endoscopic, Diagnostic (ICD-10-PCS; 2022-05-20)
DX: D12.5 Benign neoplasm of sigmoid colon (principal); K57.30 Diverticulosis of large intestine without perforation or abscess without bleeding; K64.8 Other hemorrhoids; I10 Essential (primary) hypertension; E11.9 Type 2 diabetes mellitus without complications; Z79.84 Long term (current) use of oral hypoglycemic drugs